=== PATIENT | male | born 1955 | race Caucasian/White ===

== ENCOUNTER 2017-04-16 16:06 | Inpatient (IN) | payer OTHER ==
[~2017-04-16] VITALS: Ht 175.3 cm; Wt 79.4 kg
[2017-04-16] MEDS ORDERED: ACETAMINOPHEN PO (16:32)
[2017-04-16] MEDS ORDERED: OXYCODONE PO (16:32)
[2017-04-16] MEDS ORDERED: MIRT15TA3 PO (16:32)
[2017-04-16] MEDS ORDERED: METF500T PO (16:32)
[2017-04-16] MEDS ORDERED: DOXY100T16 PO (16:32)
[2017-04-16] MEDS ORDERED: TRAZ50TA4 PO (16:32)
[2017-04-16] MEDS ORDERED: TRAZO50TA FT (16:32)
[2017-04-16] MEDS ORDERED: FLUO40CA PO (16:32)
[2017-04-16] MEDS ORDERED: BUPR150T3 PO (16:32)
[2017-04-16] MEDS ORDERED: SODIUM CHLORIDE 0.9% 1000 ML IV ONE (17:00)
[2017-04-16 17:13] LABS: BASO % 0.2 % (0.0-1.0); EOS # 0.1 K/mm3 (0.0-0.50); EOS % 0.6 % (0.0-3.0); LARGE UNSTAINED CELL # 0.1 K/mm3 (0.0-0.4); LARGE UNSTAINED CELL % 0.5 % (0.0-4.0); MEAN CORPUSCULAR HGB CONC 32.6 g/dl (32.0-36.5); MONO # 0.3 K/mm3 (0.0-0.8); MONO % 2.9 % (0.0-5.0); NEUTROPHILS # 9.8 K/mm3 (1.8-7.7); NEUTROPHILS % 86.9 % (36.0-66.0); PLATELET COUNT, AUTOMATED 235 k/mm3 (150-450); WHITE BLOOD COUNT 11.2 K/mm3 (4.0-10.0)
[2017-04-16 17:20] LABS: ABG HCO3 18.6 MEQ/L (22.0-26.0); ABG PARTIAL PRESSURE CO2 30.7 mmHg (35.0-45.0); ABG STANDARD HCO3 20.3 MEQ/L (22.0-26.0); ABG TOTAL CO2 19.5 MEQ/L (23.0-31.0)
[2017-04-16 17:29] LABS: ALBUMIN 3.1 GM/DL (3.2-5.2); ALBUMIN/GLOBULIN RATIO 0.86 (1.00-1.93); ALKALINE PHOSPHATASE 101 U/L (45-117); ALT/SGPT 13 U/L (12-78); ANION GAP 7 MEQ/L (8-16); AST/SGOT 10 U/L (15-37); BILIRUBIN,DIRECT 0.1 MG/DL (0.0-0.2); BILIRUBIN,TOTAL 0.3 MG/DL (0.2-1.0); BLOOD UREA NITROGEN 14 MG/DL (7-18); CALCIUM LEVEL 8.1 MG/DL (8.8-10.2); CARBON DIOXIDE LEVEL 24 MEQ/L (21-32); CHLORIDE LEVEL 108 MEQ/L (98-107); CREATININE FOR GFR 0.87 MG/DL (0.70-1.30); GLOMERULAR FILTRATION RATE > 60.0 (>49); GLUCOSE, FASTING 157 MG/DL (80-110); POTASSIUM SERUM 3.7 MEQ/L (3.5-5.1); SODIUM LEVEL 139 MEQ/L (136-145); TOTAL PROTEIN 6.7 GM/DL (6.4-8.2)
--- NOTE | 2017-04-16 20:49 | ECGEPIP ---
Stationary ECG Study 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
[2017-04-16 21:17] LABS: METHADONE URINE NEGATIVE (NEGATIVE)
[2017-04-17] MEDS ORDERED: FLUO20CA9 PO (10:33)
[2017-04-17 13:49] VITALS: BP 112/69
[2017-04-17] MEDS ORDERED: MAALOX 30 ML SUSP *UDC PO PRN (15:30)
[2017-04-17] MEDS ORDERED: traZODone 50 MG TAB PO PRN (15:30)
[2017-04-17] MEDS ORDERED: MOM 30ML SUSPENSION UDC PO PRN (15:30)
[2017-04-17] MEDS: NICOTINE 21MG/24HR 1 EA TRANSDERMAL TD SCH (16:54)
[2017-04-17] MEDS: metFORMIN (GLUCOPHAGE) 500 MG TAB PO SCH (17:04)
[2017-04-17] MEDS ORDERED: IBUPROFEN 600 MG TAB PO STA (21:33)
[2017-04-17] MEDS: MIRTAZAPINE 15 MG TAB PO SCH (22:05)
[2017-04-18 06:54] VITALS: BP 136/80
[2017-04-18] MEDS: buPROPion **XL** TABLET 150MG (WELLBUTRIN XL) PO SCH (09:29)
[2017-04-18] MEDS: NICOTINE 21MG/24HR 1 EA TRANSDERMAL TD SCH (09:29)
[2017-04-18] MEDS: FLUoxetine 20 MG CAP PO SCH (09:29)
[2017-04-18] MEDS: metFORMIN (GLUCOPHAGE) 500 MG TAB PO SCH ×2 (09:30→17:06)
--- NOTE | 2017-04-18 11:07 | HPEPDOC ---
Medical History and Physical Date of Admission April 17, 2017 at 11:38 History and Physical PCP: None ATTENDING: Dr. Khai Shaikh HPI: 61yoM admitted to [facility] for depressive disorder, being medically examined today. Patient was evaluated and medically cleared in the ED after stating he had taken 30 trazodone and 2 oxycodone. Poison control consulted. Patient states he was homeless in [place] and moved to [facility] with his ex- 2 weeks ago. Patient is only able to provide very vague history. History is taken from records received from the [facility]. Previously in [place] 02/01 he was hospitalized at [facility] for treatment of left hip septic arthritis, MSSA arthritis of the left hip and bacteremia and right wrist fracture. As per records from [place], this indicates that in October 2016 he developed a rectus tear after having the flu with intense coughing. Several weeks later he began to experience pain in the left hip. He was initially evaluated in [place]. CT scan at that time indicated a rectus sheath hematoma as well as left hip effusion concerning for arthritis. He returned to [place] and presented to a local physician there with repeat CT remarkable for loculated effusion of the left hip. On 01/31/17 he underwent I and D of the left hip. He states he fractured his wrist a follow-up he was hospitalized. He was subsequently transferred to SNF for PT, OT and to finish IV antibiotics. Patient completed 4 weeks of Cefazolin. Patient initially reported no acute medical complaints today. He is ambulating with the assistance of a walker related to his chronic left hip pain. He is wearing a brace on his right wrist related to history of fracture. He has not had any follow-up with orthopedics since his discharge in [place] 03/04. Initially he reported his chronic pain was unchanged and controlled. Subsequently at the end of the visit he states there has been an increase over the past 2 weeks and left hip pain. No erythema, no tenderness, no swelling. His incision is well-healed. He also states there has been an increase in his right wrist pain. He continues to wear the brace. There has been no increased edema, no erythema. Denies any fevers, chills, weakness, fatigue, LAURENT, CP, SOB, cough, palpitations, abdominal pain, N/V/D or changes in bowel or bladder habits. PMHx: Left hip septic arthritis 02/01. Treated in [place]. MSSA arthritis left hip/bacteremia 02/01 Right wrist fracture MDD History of pulmonary nodule. 2.2 x 1.0 cm nodule RLL, 5 mm nodule lateral RLL, 1.7 x 1.1 cm nodule left upper lobe. 4 mm nodule lateral left upper lobe. 0.8 cm nodule left major fissure, several additional scattered small pleural-based nodules, CT chest 01/30/17 [facility]. Due for repeat CT 05/07/17. DM 2 Aortic arch aneurysm Anemia 02/01/17 TTE negative for signs of endocarditis per records. PSHX: 01/31/17 left hip I&D PICC line 02/04/17 Spinal surgery. Inguinal hidradenitis. 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 ROS: As noted in HPI, otherwise 11pt ROS of systems reviewed and unremarkable. PE: GEN: 61 yo M, appears stated age. Well-nourished, well developed. No acute distress. Alert and oriented x 3. Pleasant, vague historian. HEENT: Normocephalic, atraumatic. Pupils are equal, round, and reactive to light. Extraocular movements are intact. No nystagmus appreciated. Sclera are nonicteric. Conjunctiva without injection. Nose midline. Nasal turbinates without bogginess. EACs both patent BL. TMs both visualized and hogan with good cone of light, no bulging or erythema. No facial asymmetry. Moist mucous membranes. Dentition fair. Pharynx pink and moist, no cobblestoning. Neck supple , trachea midline. No lymphadenopathy or thyromegaly appreciated. CHEST: Regular rate and rhythm, +S1, +S2 LUNGS: Clear to auscultation bilaterally. No wheezes, rales, or rhonchi. Breathing appears symmetric and easy. Patient is speaking in full sentences. No accessory muscle use. ABD: Round, soft, non-tender, non-distended. +Bowel sounds throughout. No rebound or guarding. No costovertebral angle tenderness. EXT: Pulses 2+ bilaterally dorsalis pedis and radial. No lower extremity edema appreciated. SKIN: [place], dry, warm. Capillary refill <2sec. No rashes. There is a healed surgical scar at the left hip and right wrist. There is no erythema, no rashes, no swelling, no tenderness with palpation. NEURO: Alert and oriented x 3. Cranial nerves III-XII are intact. No focal deficits appreciated. EKG: Pending A&P: 61yoM admitted to [facility] for depressive disorder 1. Psych. Plan per Psychiatry. Obtain baseline EKG to assure the safety of psychiatric medications as they can prolong the QT interval. 2. Nicotine dependence. Patch available. 3. History of left hip septic arthritis, MSSA, status post I&D and 4 weeks IV antibiotics completed 03/04. Check x-ray of the left hip. Continue ambulation with walker. Plan is for outpatient follow-up with orthopedics or pending results. Patient is afebrile. WBC noted to be 11.1, recheck CBC. 4. Follow up. No Primary Care Provider. Will attempt to establish PCP on discharge. 5. Right wrist fracture. Check x-ray of right wrist. Continues to wear a brace on the wrist. Plan is for outpatient follow-up with orthopedics for pending results. 6. Chronic right wrist and left hip pain. Continue ibuprofen 600 mg every 8 hours as needed. Consider pain management if needed. ISTOP Ref # [id number] no results. 7. NIDDM. Controlled carbohydrate diet. Continue metformin 500 mg by mouth twice a day. Fingerstick blood sugar twice a day. Update A1c/lipids. 8. Unsteady gait. Continue ambulation with walker. PT evaluation pending. 9. History of pulmonary nodule. Follow-up CT chest due 05/04. Will request. 10. Staff member Danielito present throughout exam. Vital Signs Vital Signs Date Time Temp Pulse Resp B/P (MAP) Pulse Ox O2 Delivery O2 Flow Rate FiO2 04/18/17 06:54 97.3 80 20 136/80 (98) Room Air 04/17/17 13:49 96 04/16/17 18:11 4.0 Laboratory Data Labs 24H Laboratory Tests 2 04/17/17 17:43: Bedside Glucose (Misc Panel) 160H 04/18/17 06:12: Bedside Glucose (Misc Panel) 125H CBC/BMP Item Value Date Time White Blood Count 11.2 K/mm3 H 04/16/17 1647 Red Blood Count 4.90 M/mm3 04/16/17 1647 Hemoglobin 13.7 g/dl L 04/16/17 1647 Hematocrit 42.1 % 04/16/17 1647 Mean Corpuscular Volume 86.0 fl 04/16/17 1647 Mean Corpuscular Hemoglobin 28.0 pg 04/16/17 1647 Mean Corpuscular Hemoglobin Concent 32.6 g/dl 04/16/17 1647 Red Cell Distribution Width 18.0 % H 04/16/17 1647 Platelet Count 235 k/mm3 04/16/17 1647 Sodium Level 139 MEQ/L 04/16/17 1647 Potassium Level 3.7 MEQ/L 04/16/17 1647 Chloride Level 108 MEQ/L H 04/16/17 1647 Carbon Dioxide Level 24 MEQ/L 04/16/17 1647 Anion Gap 7 MEQ/L L 04/16/17 1647 Blood Urea Nitrogen 14 MG/DL 04/16/17 1647 Creatinine 0.87 MG/DL 04/16/17 1647 Glomerular Filtration Rate > 60.0 04/16/17 1647 Fasting Glucose 157 MG/DL H 04/16/17 1647 Calcium Level 8.1 MG/DL L 04/16/17 1647 Total Bilirubin 0.3 MG/DL 04/16/17 1647 Direct Bilirubin 0.1 MG/DL 04/16/17 1647 Aspartate Amino Transf (AST/SGOT) 10 U/L L 04/16/17 1647 Alanine Aminotransferase (ALT/SGPT) 13 U/L 04/16/17 1647 Alkaline Phosphatase 101 U/L 04/16/17 1647 Total Creatine Kinase 36 U/L L 04/16/17 1647 Albumin 3.1 GM/DL L 04/16/17 1647 Total Protein 6.7 GM/DL 04/16/17 1647 Albumin/Globulin Ratio 0.86 L 04/16/17 1647 Thyroid Stimulating Hormone (TSH) 1.020 uIU/ML 04/16/17 1647 Salicylates Level 7.0 MG/DL 5/30/17 1647 Urine Opiates Screen POSITIVE H 04/16/172021 Urine Methadone Screen NEGATIVE 04/16/172021 Acetaminophen Level 6.5 UG/ML L 04/16/171646 Urine Barbiturates Screen NEGATIVE 04/16/172021 Urine Phencyclidine Screen NEGATIVE 04/16/172021 Urine Amphetamines Screen NEGATIVE 04/16/172021 Urine Benzodiazepines Screen NEGATIVE 04/16/172021 Urine Cocaine Metabolite Screen NEGATIVE 04/16/172021 Urine Cannabinoids Screen NEGATIVE 04/16/172021 Ethyl Alcohol Level < 0.003 % 04/16/171646 Home Medications Scheduled Bupropion Hcl (Bupropion HCl Xl) 150 Mg Tab, 150 MG PO DAILY Fluoxetine Hcl (Fluoxetine HCl) 20 Mg Cap, 40 MG PO DAILY Metformin Hydrochloride (Metformin HCl) 500 Mg Tab, 500 MG PO BID Mirtazapine (Mirtazapine) 15 Mg Tab, 15 MG PO QHS Trazodone HCl (Trazodone HCl) 50 Mg Tab, 50 MG PO QHS Allergies Coded Allergies: No Known Allergies (Unverified , 04/16/17) Lori Pryor Apr 18, 2017 11:07
--- NOTE | 2017-04-18 12:10 | MHHPEPDOC ---
[facility] History & Physical History and Physical DATE OF ADMISSION: April 17, 2017 at 11:38 LEGAL STATUS AT ADMISSION: 9.39 CHIEF COMPLAINT: "I wanted to check out. Things just piled up on me, pain, losing my girlfriend, losing my truck". HISTORY OF THE PRESENT ILLNESS: Patient is a 61-year-old male, who appears older than stated age. Pt has been receiving antidepressants and therapy while living in [place]. His PCP was providing his medications - wellbutrin and prozac. Pt developed a serious infection earlier this year which resulted in a significant weight loss of 70 lbs. His left hip was infected and he is still on antibiotics for the staph infection. Pt is hopeful he will be able to have a hip replacement as he is in chronic constant hip pain. 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 He [place] [facility]. He owns the truck and companies would contract with him to take their trailers across the country. Pt states his on the road absences could be as long as 87 days and his marriage ended as a result of this. He had been 34 years and had 3 children. The divorce ocurred 8-9 years ago. He had a girlfriend after he moved to [place] and they recently broke up for reasons related to his depression. He states in the afternoon he would "get sad and barry" and have crying spells. His GF couldn't take it and left. He says he still has these crying spells during 2 and 4 in the afternoon and thinks it is because that is the time his GF would return home from work and he misses her. PSYCHIATRIC REVIEW OF SYSTEMS: Affective: . Anxiety: . Trauma: . Psychosis: . Personally: . PAST PSYCHIATRIC HISTORY: Prior Psychiatric Disorder: . Outpatient Treatment: . Suicidal/Self injurious: . Psychotropic Medication History: . ALLERGIES: Please see below. FAMILY PSYCHIATRIC HISTORY: . SOCIAL HISTORY: Early Relations/development: . Sibling order: . Paternal relationships: . Education: . Occupational: . Legal: . Martial: . Economic: . Supports: . Abuse/trauma: . SUBSTANCE ABUSE HISTORY: . PAST MEDICAL/SURGICAL HISTORY: 1. . 2. . VITAL SIGNS: Temperature , pulse , respiratory rate , blood pressure , pulse oximetry % on room air. MENTAL STATUS EXAMINATION: General appearance: Patient is a -year old male, who is . Speech: . Thought processes: . Thought content: . Abstract reasoning and computation: . Description of associations: . Description of abnormal or psychotic thoughts: . Judgment: . Insight: . Orientation: . Recent and remote memory: . Attention span and concentration: . Fund of knowledge: . Mood: "." Affect: . DIAGNOSES: 1. . 2. . 3. . ASSESSMENT: PROBLEM LIST: 1. . 2. . 3. . INITIAL TREATMENT PLAN: 1. Patient was admitted on a . 2. Complete history was obtained. 3. With patients permission, family will be contacted and database will be expanded. 4. Patients medication regimen will be reviewed and changed accordingly. 5. Patient will be provided with protected environment. 6. Patient will be treated with individual, group, and milieu therapies. 7. Patient will receive supportive psych-education. 8. Discharge planning will commence immediately. 9. Outpatient follow-up treatment will be strongly recommended. 10. The initial treatment plan will focus initially on: * Depression. * Risk for suicide. * Substance abuse. ESTIMATED LENGTH OF STAY: - DAYS. TIME SPENT COUNSELING AND COORDINATING INITIAL CARE: minutes. Laboratory Data 24H Labs Laboratory Tests 2 04/17/17 17:43: Bedside Glucose (Misc Panel) 160H 04/18/17 06:12: Bedside Glucose (Misc Panel) 125H FSBS Laboratory Tests Test 04/17/17 17:43 04/18/17 06:12 Range/Units Bedside Glucose (Misc Panel) 160 125 80-115 MG/DL Medications Scheduled Bupropion Hcl (Bupropion HCl Xl) 150 Mg Tab, 150 MG PO DAILY, (Reported) Bupropion Hcl (Bupropion HCl Xl) 150 Mg Tab, 150 MG PO QAM for DEPRESSION Fluoxetine Hcl (Fluoxetine HCl) 20 Mg Cap, 40 MG PO DAILY, (Reported) Fluoxetine Hcl (Fluoxetine HCl) 20 Mg Cap, 40 MG PO QAM for DEPRESSION Metformin Hydrochloride (Metformin HCl) 500 Mg Tab, 500 MG PO BID, (Reported) Allergies Coded Allergies: No Known Allergies (Unverified , 04/16/17) Naomi Meeks Apr 18, 2017 12:10
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
[2017-04-18] MEDS: IBUPROFEN 600 MG TAB PO PRN ×2 (14:06→21:39)
[2017-04-18 18:00] VITALS: BP 143/78
--- NOTE | 2017-04-18 20:57 | ECGEPIP ---
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
[2017-04-18] MEDS: MIRTAZAPINE 15 MG TAB PO SCH (21:00)
--- NOTE | 2017-04-19 01:54 | REP ---
Clinical: Pain. Technique: AP and frog lateral views of the left hip. Findings: There is complete obliteration of the joint space with increase sclerosis and heterogeneity of the acetabulum as well as irregular contour and suspected destructive changes to the femoral head along with periarticular calcifications as well as subchondral cystic/lytic changes. Findings are consistent with a history of septic arthritis. Clinical correlation is recommended. Impression: Obliteration of the joint space with irregularity to the residual femoral head and acetabulum along with periarticular calcifications consistent with a history of septic arthritis. Signed by Edwin Brice MD 04/19/2017 01:45 A
--- NOTE | 2017-04-19 02:11 | REP ---
Clinical: Pain. History of prior fracture. Technique: AP, lateral, bilateral oblique views of the right wrist. Comparison: None. Findings: Mild heterogeneity and subtle lytic changes involving the scaphoid and lunate bone along with increased sclerosis to the radial surface and decreased radiocarpal joint space may be related to prior trauma. Oblique image demonstrates small linear density inferior to the pisiform and superior to the ulnar styloid which may also be related to prior trauma. Overlying soft tissue swelling is suggested. No obvious acute fracture or dislocation identified. Impression: Changes related to the scaphoid and lunate and underlying radial surface may reflect sequelae of old injury. Small possible old linear fracture fragment superior to the ulnar styloid on oblique image also suggested. Signed by Edwin Brice MD 04/19/2017 02:02 A
[2017-04-19 06:00] VITALS: BP 163/87
[2017-04-19 07:20] LABS: MEAN CORPUSCULAR HEMOGLOBIN 28.5 pg (27.0-33.0); MEAN CORPUSCULAR HGB CONC 33.5 g/dl (32.0-36.5); WHITE BLOOD COUNT 6.7 K/mm3 (4.0-10.0)
[2017-04-19 07:45] LABS: ALBUMIN 3.2 GM/DL (3.2-5.2); ALBUMIN/GLOBULIN RATIO 0.91 (1.00-1.93); ALKALINE PHOSPHATASE 105 U/L (45-117); ALT/SGPT 15 U/L (12-78); ANION GAP 7 MEQ/L (8-16); AST/SGOT 13 U/L (15-37); BILIRUBIN,TOTAL 0.3 MG/DL (0.2-1.0); BLOOD UREA NITROGEN 14 MG/DL (7-18); CALCIUM LEVEL 8.4 MG/DL (8.8-10.2); CARBON DIOXIDE LEVEL 26 MEQ/L (21-32); CHLORIDE LEVEL 109 MEQ/L (98-107); CHOLESTEROL LEVEL 173 MG/DL (<200); CREATININE FOR GFR 0.75 MG/DL (0.70-1.30); GLOMERULAR FILTRATION RATE > 60.0 (>49); GLUCOSE, FASTING 122 MG/DL (80-110); POTASSIUM SERUM 4.1 MEQ/L (3.5-5.1); SODIUM LEVEL 142 MEQ/L (136-145); TOTAL PROTEIN 6.7 GM/DL (6.4-8.2); TRIGLYCERIDES LEVEL 107 MG/DL (<150)
[2017-04-19] MEDS: metFORMIN (GLUCOPHAGE) 500 MG TAB PO SCH (08:00)
[2017-04-19] MEDS: FLUoxetine 20 MG CAP PO SCH (08:25)
[2017-04-19] MEDS: buPROPion **XL** TABLET 150MG (WELLBUTRIN XL) PO SCH (08:25)
[2017-04-19] MEDS: NICOTINE 21MG/24HR 1 EA TRANSDERMAL TD SCH (08:25)
[2017-04-19] MEDS: IBUPROFEN 600 MG TAB PO PRN (08:26)
--- NOTE | 2017-04-19 08:43 | REP ---
Clinical: Follow-up pulmonary nodule. Comparison: 05/07/2002. Findings: A 1.9 cm noncalcified nodule is identified in the medial left upper lobe (image 43) and a 1.8 cm nodular noncalcified lesion is identified in the right lower lobe (image 64). Smaller scattered noncalcified nodules are also identified in the left upper lobe including adjacent to the major fissure which measures 10 mm (image 51) and few scattered bilateral smaller nodules up to 5 mm. Minimal scattered scarring and interstitial changes are appreciated. No pleural effusion. No pneumothorax. Tracheobronchial tree is patent. Mediastinum and cardiac silhouette are grossly normal for noncontrast evaluation of those subtle mediastinal lymph nodes cannot be excluded. Limited upper abdomen demonstrates suspected right adrenal adenoma measuring approximately 1.9 cm. Impression: 1.9 cm medial left upper lobe and 1.8 cm right lower lobe noncalcified lesions along with 10 mm lesion adjacent to the left major fissure. PET CT and/or 3-month follow-up may be warranted as well as Pulmonology consultation and biopsy. Signed by Edwin Brice MD 04/19/2017 08:34 A
[2017-04-19] MEDS ORDERED: BUPR150T3 PO (10:51)
[2017-04-19] MEDS ORDERED: FLUO20CA9 PO (10:51)
--- NOTE | 2017-04-19 11:03 | MHDSPDOC ---
[facility] Discharge Summary Discharge Summary DATE OF ADMISSION: April 17, 2017 at 11:38 DATE OF DISCHARGE: April 19, 2017 DISCHARGE DIAGNOSES: 1. MDD, severe, recurrent without psychotic features. 2. . REASON FOR ADMISSION: overdose on trazodone with intent to committ suicide CONSULTANTS INVOLVED: PT, Medicine, Psychiatry, Lab TREATMENT AND PROGRESS ON THE UNIT : Pt regretted his impulsive act from the moment he arrived on the unit. He has been mostly stable on his medications. he recently arrived in [place] from [place] where h ewas living and working. His girlfriend broke up with him. He has chronic pain, he needs a hip replacement but has an infection, and he has been unable to work due to his infection. Loss of income resulted in losing his truck that he owed money on. Pt became overwhelmed and took an overdose "to check out". Pt no longer desires to . He has gained insight from his time on the unit. HOSPITAL COURSE: Pt stabilized rather quickly. He had been on his medications since leaving [place] and for many months prior to that. He has numerous medical issues that have been addressed and he will follow up with [facility] on 05/02/17. He will attend [facility] mental health services at [facility]. Pt had PT eval while here. We were able to obtain a recliner for him to sleep in which he says is more comfortable than lying down. DISCHARGE ASSESSMENT: Pt is alert and oriented. Hygiene is good. Taking medications as prescribed and knows not to stop meds abruptly. Pt showed fiction and nonfiction writer prose handouts from group that he has found helpful especially in terms of communication. He is in good spirts, laughing and joking. Ex- will transport him to her house where he will remain until he is able to make other arrangements. MENTAL STATUS EXAMINATION ON DISCHARGE: Patient is a 61-year old male, who appears older than stated age, unshaven, dressed casually, smiling and pleasant. Ambulates with walker very slowly. Speech is spontaneous Language skills are good Thought processes including: goal directed. Thought content: appropriate Abstract reasoning, and computation: good Description of associations: good Description of abnormal or psychotic thoughts: no longer thinks about taking his life, no homicidal ideation, no psychotic symptoms. Judgment: improved Insight: improved-good Orientation to person, place , time and situation. Recent and remote memory: intact Attention span and concentration: good Fund of knowledge: full Mood: euthymic Affect: broad MEDICATIONS ON DISCHARGE: - wellbutrin xl for depression - prozac for depression PLAN/FOLLOWUP ARRANGEMENTS: CC for outpatient mental health service, [facility] for medical needs. See DSS to change medicaid to [facility] from [place]. The amount of time spent in the coordination of care for this patient was approximately 30 minutes. Vital Signs/I&Os Vital Signs Date Time Temp Pulse Resp B/P (MAP) Pulse Ox O2 Delivery O2 Flow Rate FiO2 04/19/17 06:00 98.3 94 16 163/87 (112) 04/18/17 06:54 Room Air 04/17/17 13:49 96 04/16/17 18:11 4.0 Laboratory Data Labs 24H Laboratory Tests 2 04/18/17 17:03: Bedside Glucose (Misc Panel) 116H 04/19/17 05:59: Bedside Glucose (Misc Panel) 119H 04/19/17 06:37: Anion Gap 7L, Glomerular Filtration Rate > 60.0, Estimated Mean Plasma Glucose 134H, Hemoglobin A1c 6.3H, Blood Urea Nitrogen 14, Creatinine 0.75, Sodium Level 142, Potassium Level 4.1, Chloride Level 109H, Carbon Dioxide Level 26, Calcium Level 8.4L, Aspartate Amino Transf (AST/SGOT) 13L, Alanine Aminotransferase (ALT/SGPT) 15, Alkaline Phosphatase 105, Total Bilirubin 0.3, Triglycerides Level 107, LDL Cholesterol 110.6H, Total Protein 6.7, Albumin 3.2 , Albumin/Globulin Ratio 0.91L, Total Cholesterol 173, Non-HDL Cholesterol (LDL + VLDL) 132, Total HDL Cholesterol 41, Cholesterol/HDL Ratio 4.219 CBC/BMP Laboratory Tests 04/19/17 06:37 Red Blood Count 4.58, Mean Corpuscular Volume 85.0, Mean Corpuscular Hemoglobin 28.5, Mean Corpuscular Hemoglobin Concent 33.5, Red Cell Distribution Width 18.0 H, Calcium Level 8.4 L, Aspartate Amino Transf (AST/SGOT) 13 L, Alanine Aminotransferase (ALT/SGPT) 15, Alkaline Phosphatase 105, Total Bilirubin 0.3, Triglycerides Level 107, LDL Cholesterol 110.6 H, Total Protein 6.7, Albumin 3.2 Medications Scheduled Bupropion Hcl (Bupropion HCl Xl) 150 Mg Tab, 150 MG PO DAILY, (Reported) Bupropion Hcl (Bupropion HCl Xl) 150 Mg Tab, 150 MG PO QAM for DEPRESSION for 7 Days, #7 Fluoxetine Hcl (Fluoxetine HCl) 20 Mg Cap, 40 MG PO DAILY, (Reported) Fluoxetine Hcl (Fluoxetine HCl) 20 Mg Cap, 40 MG PO QAM for DEPRESSION for 7 Days, #7 Metformin Hydrochloride (Metformin HCl) 500 Mg Tab, 500 MG PO BID, (Reported) Allergies Coded Allergies: No Known Allergies (Unverified , 04/16/17) Naomi Meeks Apr 19, 2017 11:03
--- NOTE | 2017-04-19 12:10 | IPNPDOC ---
Subjective Date Seen The patient was seen on 04/19/17. Subjective Chief Complaint/HPI The patient is a 61-year-old male admitted with a reason for visit of Depressive Disorder. Events since last encounter Pt with no new complaints. Ambulating in HW with platform walker. Objective Physical Examination General Exam: Positive: Alert ENT Exam: Positive: Atraumatic Neck Exam: Positive: Supple Skin Exam: Positive: Nl turgor and temperature Assessment /Plan Problems (1) Hx of septic arthritis Problem Text: * H/O left hip septic arthritis (MSSA) s/p I&D [place]. * Completed x 4 weeks IV Cefazolin. * 02/01/17 TTE negative for signs of endocarditis per records * PT- Platform walker. * XR left hip 04/18/17 Obliteration of the joint space with irregularity to the residual femoral head and acetabulum along with periarticular calcifications consistent with a history of septic arthritis. * Plan is for outpt f/u with [facility] (2) Right wrist fracture Problem Text: * Wearing splint * XR Rt Wrist 04/18/17 Changes related to the scaphoid and lunate and underlying radial surface may reflect sequelae of old injury. Small possible old linear fracture fragment superior to the ulnar styloid on oblique image also suggested. (3) Pulmonary nodule Problem Text: * Septic emboli vs malignancy as per report [facility] 02/01. * Recommended f/u study 3 mo. * Pt is afebrile. WBC WNL. * No pulmonary complaints at this time * CT chest 04/18/17 1.9 cm medial left upper lobe and 1.8 cm right lower lobe noncalcified lesions along with 10 mm lesion adjacent to the left major fissure. PET CT and/or 3-month follow-up may be warranted as well as Pulmonology consultation and biopsy. * Discussed with Dr Green, who also reviewed CT Chest, recommends outpt f/u with her in her office after d/c. * Will fwd copy of records. Spoke with Mary joseph, she will arrange appt today. Plan/VTE VTE Prophylaxis Ordered?: No (ambulatory) VS, I&O, 24H, Fishbone Vital Signs/I&O Vital Signs Date Time Temp Pulse Resp B/P (MAP) Pulse Ox O2 Delivery O2 Flow Rate FiO2 04/19/17 06:00 98.3 94 16 163/87 (112) 04/18/17 06:54 Room Air 04/17/17 13:49 96 04/16/17 18:11 4.0 Laboratory Data 24H LABS Laboratory Tests 2 04/18/17 17:03: Bedside Glucose (Misc Panel) 116H 04/19/17 05:59: Bedside Glucose (Misc Panel) 119H 04/19/17 06:37: Anion Gap 7L, Glomerular Filtration Rate > 60.0, Estimated Mean Plasma Glucose 134H, Hemoglobin A1c 6.3H, Blood Urea Nitrogen 14, Creatinine 0.75, Sodium Level 142, Potassium Level 4.1, Chloride Level 109H, Carbon Dioxide Level 26, Calcium Level 8.4L, Aspartate Amino Transf (AST/SGOT) 13L, Alanine Aminotransferase (ALT/SGPT) 15, Alkaline Phosphatase 105, Total Bilirubin 0.3, Triglycerides Level 107, LDL Cholesterol 110.6H, Total Protein 6.7, Albumin 3.2 , Albumin/Globulin Ratio 0.91L, Total Cholesterol 173, Non-HDL Cholesterol (LDL + VLDL) 132, Total HDL Cholesterol 41, Cholesterol/HDL Ratio 4.219 CBC/BMP Laboratory Tests 04/19/17 06:37 Red Blood Count 4.58, Mean Corpuscular Volume 85.0, Mean Corpuscular Hemoglobin 28.5, Mean Corpuscular Hemoglobin Concent 33.5, Red Cell Distribution Width 18.0 H, Calcium Level 8.4 L, Aspartate Amino Transf (AST/SGOT) 13 L, Alanine Aminotransferase (ALT/SGPT) 15, Alkaline Phosphatase 105, Total Bilirubin 0.3, Triglycerides Level 107, LDL Cholesterol 110.6 H, Total Protein 6.7, Albumin 3.2 Lori Pryor Apr 19, 2017 12:10
== END 2017-04-19 11:20 | disposition home or self-care (01) | DRG 751 ==
LOC: EDBD 16:06 → EDSEX 16:06 → M ED 18:36 → M ED INP 04-17 11:38 → M PSY 04-17 13:37
PROVIDERS: ADMIT Psychiatry & Neurology Psychiatry; ATTEND Psychiatry & Neurology Psychiatry
DX: F33.2 Major depressive disorder, recurrent severe without psychotic features (principal); F43.21 Adjustment disorder with depressed mood; E11.9 Type 2 diabetes mellitus without complications; D64.9 Anemia, unspecified; F17.210 Nicotine dependence, cigarettes, uncomplicated; R91.8 Other nonspecific abnormal finding of lung field; M25.552 Pain in left hip; I71.4 Abdominal aortic aneurysm, without rupture; T40.2X2A Poisoning by other opioids, intentional self-harm, initial encounter; T43.212A Poisoning by selective serotonin and norepinephrine reuptake inhibitors, intentional self-harm, initial encounter; R26.81 Unsteadiness on feet; G89.29 Other chronic pain; M25.531 Pain in right wrist; Z79.84 Long term (current) use of oral hypoglycemic drugs; Z79.899 Other long term (current) drug therapy; Z79.891 Long term (current) use of opiate analgesic; Y92.9 Unspecified place or not applicable

== ENCOUNTER 2017-04-25 19:00 | Inpatient (IN) | payer OTHER ==
[~2017-04-25] VITALS: Ht 177.8 cm; Wt 77.1 kg
[~2017-04-25 19:00] MED LIST: ACETAMINOPHEN PO; BUPR150T3 PO; DOXY100T16 PO; FLUO20CA9 PO; FLUO40CA PO; METF500T PO; MIRT15TA3 PO; OXYCODONE PO; TRAZ50TA4 PO; TRAZO50TA FT
[2017-04-25] MEDS ORDERED: OXYC1TAB23 PO (19:15)
[2017-04-25] MEDS ORDERED: FLORCAP6 PO (19:15)
[2017-04-25] MEDS ORDERED: MIRT15TA3 PO (19:15)
[2017-04-25] MEDS ORDERED: HYDROmorphone HCL 1 MG/ML SYRINGE (J1170) IV ONE (20:00)
[2017-04-25] MEDS ORDERED: MORPHINE 2 MG/ML 1ML SYRINGE IV ONE (20:00)
[2017-04-25 20:01] LABS: BASO # 0.1 K/mm3 (0.0-0.2); BASO % 0.7 % (0.0-1.0); EOS # 0.2 K/mm3 (0.0-0.50); EOS % 1.5 % (0.0-3.0); LARGE UNSTAINED CELL # 0.1 K/mm3 (0.0-0.4); LARGE UNSTAINED CELL % 0.9 % (0.0-4.0); LYMPH # 1.7 K/mm3 (1.5-4.5); LYMPH % 16.3 % (24.0-44.0); MEAN CORPUSCULAR HEMOGLOBIN 28.4 pg (27.0-33.0); MEAN CORPUSCULAR HGB CONC 33.8 g/dl (32.0-36.5); MONO # 0.6 K/mm3 (0.0-0.8); NEUTROPHILS # 7.6 K/mm3 (1.8-7.7); NEUTROPHILS % 74.7 % (36.0-66.0); PLATELET COUNT, AUTOMATED 334 k/mm3 (150-450); RED CELL DISTRIBUTION WIDTH 17.7 % (11.5-14.5); WHITE BLOOD COUNT 10.2 K/mm3 (4.0-10.0)
[2017-04-25 20:19] LABS: ERYTHROCYTE SEDIMENTATION RATE 66 mm/hr (0-20)
[2017-04-25] MEDS: PERCOCET 5MG/325MG TAB PO PRN (20:20)
[2017-04-25 20:30] LABS: ALBUMIN 3.2 GM/DL (3.2-5.2); ALBUMIN/GLOBULIN RATIO 0.73 (1.00-1.93); ALKALINE PHOSPHATASE 119 U/L (45-117); ALT/SGPT 19 U/L (12-78); ANION GAP 8 MEQ/L (8-16); AST/SGOT 11 U/L (15-37); BILIRUBIN,TOTAL 0.3 MG/DL (0.2-1.0); BLOOD UREA NITROGEN 16 MG/DL (7-18); CARBON DIOXIDE LEVEL 22 MEQ/L (21-32); CHLORIDE LEVEL 106 MEQ/L (98-107); CREATININE FOR GFR 0.81 MG/DL (0.70-1.30); GLOMERULAR FILTRATION RATE > 60.0 (>49); GLUCOSE, FASTING 135 MG/DL (80-110); MAGNESIUM LEVEL 1.5 MG/DL (1.8-2.4); POTASSIUM SERUM 4.4 MEQ/L (3.5-5.1); SODIUM LEVEL 136 MEQ/L (136-145); TOTAL PROTEIN 7.6 GM/DL (6.4-8.2)
[2017-04-25] MEDS ORDERED: ISOVUE-370 76% 100ML VIAL (Q9967) As Ordered ONE (20:36)
[2017-04-25] MEDS ORDERED: CEFTAROLINE FOSAMIL 600 MG in D5W MINI-BAG PLUS 50 ML IV SCH (20:45)
[2017-04-25] MEDS ORDERED: MAG SULF 1GM/100ML (MAG RUN) 1 GM in APPROPRIATE DILUENT 1 EA IV ONE (20:45)
--- NOTE | 2017-04-25 22:00 | REPUSA ---
CT of the pelvis without contrast Clinical statement: Pain, possible infection in the left hip. Technique: Multiple axial CT images were obtained with 5 mm cuts through the pelvis without administ ration of contrast. Coronal and sagittal reconstructions were also obtained. No comparison is available. Findings: There is severe deformity of the left femoral head, with flattening of the superior aspect. Several small ossific density is are seen around the joint space. No lytic changes are appreciated. There is a low attenuation collection in the anterior lateral soft tissues, measuring 3.9 x 2.8 cm, suspicious for a abscess. There is also a small joint effusion. There is moderate narrowing of the ri ght hip joint as well. The bowel is unremarkable. There is no evidence of pelvic lymphadenopathy or a scites. Impression: 1.. Severe chronic deformity of the left hip, with flattening of the femoral head. Tiny ossific fragm ents are seen around the joint spaces well. Additionally, there is a left-sided joint effusion with a fluid collection in the anterior lateral soft tissues of the left thigh. This conglomeration of find ings are suspicious for septic arthritis with surrounding abscess. The destructive changes could be c hronic, but septic arthritis could also have this appearance. If there is continued concern, MRI or j oint aspiration is recommended. 2. Moderate osteoarthritis of the right hip joint. 3. No acute fractures.
[2017-04-25] MEDS ORDERED: IBUPOTC PO (23:53)
[2017-04-26] VITALS (7 sets, daily range): BP systolic 130–156; BP diastolic 72–85
[2017-04-26] MEDS ORDERED: ACETAMINOPHEN TAB 650MG DOSE (2X325MG) PO PRN (00:15)
--- NOTE | 2017-04-26 00:24 | CR.PDOC ---
[facility] Consultation Consultation DATE OF CONSULTATION: Apr 25, 2017 at 20:26 REFERRING PROVIDER: Dr. Peralta ATTENDING PHYSICIAN: Dr. Venu Stephen REASON FOR CONSULTATION/CHIEF COMPLAINT: L septic hip arthritis. HISTORY OF PRESENT ILLNESS: Patient is a 61 y/o diabetic male with a history of left [place] hip septic arthritis that underwent irrigation and debridement in [employer] in January 2017. He was found to have MSSA infection treated with 12 weeks of IV antibiotics. Over the last few days, he developed acute onset hip pain with subjective fevers and chills and presented to the ED for evaluation. He has significant increased pain about the left hip and is unable to bear weight. ALLERGIES: Please see below. HOME MEDICATIONS: Please see below. PAST MEDICAL HISTORY: 1. L hip septic arthritis per HPI. 2. Diabetes. 3. Depression PAST SURGICAL HISTORY: 1. L hip I&D per HPI 2. 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 CARDIOVASCULAR: No chest pain or palpitations. RESPIRATORY: + cough. MUSCULOSKELETAL: + l hip pain, infection per HPI. GASTROINTESTINAL: no nausea, vomiting, diarrhea. PHYSICAL EXAMINATION: VITAL SIGNS: Please see below. GENERAL APPEARANCE: appears older than stated age, no acute distress. RESPIRATORY: non labored breathing. CARDIOVASCULAR: 2+ DP/PT pulses, BCR all digits LLE. EXTREMITIES: L hip anterior wound is clean and dry with no drainage. There is significant erythema around the incision with induration and palpable fluctuance. Severe pain with logroll of the hip. Patient unable to bear weight NEUROLOGICAL: sensation/motor intact in LLE tibial, sural, saphenous, SPN, DPN distributions. LABORATORY DATA: Please see below. Radiographs demonstrate significant erosion of the left hip femoral head with superior migration CT of the hip and pelvis demonstrates likely fluid collection in left hip ASSESSMENT/PLAN: 61 y/o male with recurrent left hip septic arthritis with acute onset pain, fever, elevated inflammatory markers, and fluid collection 1. recommend IR guided hip aspiration VANDANA for cell count. 2. Likely return to OR for irrigation and debridement and possible resection arthroplasty 3. Discussed with the patient the risks, benefits, indications, and alternatives of operative3 and non operative treatment of his recurrent infection and discussed thast he will most likely benefit from direct source control. 4. informed consent was obtained for left hip irrigation and debridement and possible resection arthroplasty 5. all patient questions were answered Vital Signs/I&O Vital Signs Date Time Temp Pulse Resp B/P (MAP) Pulse Ox O2 Delivery O2 Flow Rate FiO2 04/25/17 22:38 99.0 117 16 132/78 (96) 98 Room Air Laboratory Data Labs 24H Laboratory Tests 2 04/25/17 19:43: White Blood Count 10.2H, Red Blood Count 4.83, Hemoglobin 13.7L, Hematocrit 40.6L, Mean Corpuscular Volume 84.0, Mean Corpuscular Hemoglobin 28.4, Mean Corpuscular Hemoglobin Concent 33.8, Red Cell Distribution Width 17.7H, Platelet Count 334, Neutrophils (%) (Auto) 74.7H, Lymphocytes (%) (Auto) 16.3L, Monocytes (%) (Auto) 6.0H, Eosinophils (%) (Auto) 1.5, Basophils (%) (Auto) 0.7 , Neutrophils # (Auto) 7.6, Lymphocytes # (Auto) 1.7, Monocytes # (Auto) 0.6, Eosinophils # (Auto) 0.2, Basophils # (Auto) 0.1, Large Unclassified Cells % 0.9 , Large Unclassified Cells # 0.1, Erythrocyte Sedimentation Rate 66H, Anion Gap 8, Glomerular Filtration Rate > 60.0, Estimated Mean Plasma Glucose 137H, Hemoglobin A1c 6.4H, Blood Urea Nitrogen 16, Creatinine 0.81, Sodium Level 136, Potassium Level 4.4, Chloride Level 106, Carbon Dioxide Level 22, Calcium Level 9.0, Aspartate Amino Transf (AST/SGOT) 11L, Alanine Aminotransferase (ALT/SGPT) 19, Alkaline Phosphatase 119H, Total Bilirubin 0.3, Total Protein 7.6, Albumin 3.2, Magnesium Level 1.5L, C-Reactive Protein, Quantitative 11.40H, Albumin/ Globulin Ratio 0.73L CBC/BMP Laboratory Tests 04/25/17 19:43 Red Blood Count 4.83, Mean Corpuscular Volume 84.0, Mean Corpuscular Hemoglobin 28.4, Mean Corpuscular Hemoglobin Concent 33.8, Red Cell Distribution Width 17.7 H, Neutrophils (%) (Auto) 74.7 H, Lymphocytes (%) (Auto) 16.3 L, Monocytes (%) (Auto) 6.0 H, Eosinophils (%) (Auto) 1.5, Basophils (%) (Auto) 0.7, Neutrophils # (Auto) 7.6, Lymphocytes # (Auto) 1.7, Monocytes # (Auto) 0.6, Eosinophils # (Auto) 0.2, Basophils # (Auto) 0.1, Calcium Level 9.0, Aspartate Amino Transf (AST/SGOT) 11 L, Alanine Aminotransferase (ALT/SGPT) 19, Alkaline Phosphatase 119 H, Total Bilirubin 0.3, Total Protein 7.6, Albumin 3.2 Microbiology Microbiology 04/25/17 Blood Culture, Received Pending 04/25/17 Blood Culture, Received Pending Allergies Coded Allergies: No Known Allergies (Unverified , 04/25/17) Home Medications Scheduled Bupropion Hcl (Bupropion HCl Xl) 150 Mg Tab, 150 MG PO DAILY, (Reported) Fluoxetine Hcl (Fluoxetine HCl) 20 Mg Cap, 40 MG PO DAILY, (Reported) Metformin Hydrochloride (Metformin HCl) 500 Mg Tab, 500 MG PO BID, (Reported) Scheduled PRN Ibuprofen (Ibuprofen) 200 Mg Tab, 800 MG PO Q6H PRN for PAIN, (Reported) Oxycodone/Acetaminophen (Oxycodone/Acetaminophen 5-325 mg) 1 Tab Tab, 1 TAB PO Q6H PRN for PAIN, (Reported) MILY STEPHEN MD Apr 26, 2017 00:24
--- NOTE | 2017-04-26 00:41 | REP ---
Clinical: Pain. Technique: Neutral AP and frog lateral views of the left hip. Findings: There is complete joint space obliteration with remodeling along the superior aspect of the acetabulum and underlying femoral head as well as subchondral heterogeneity and marginal spurring. Small periarticular calcifications are also identified along the superior aspect of the joint space. Impression: Advanced degenerative changes. Signed by Edwin Brice MD 04/26/2017 12:32 A
[2017-04-26] MEDS ORDERED: GLUCOSE 4 GM CHEW TABLET PO PRN (00:45)
[2017-04-26] MEDS ORDERED: DEXTROSE 50% 50 ML SYRINGE IV PRN (00:45)
[2017-04-26] MEDS ORDERED: GLUCAGON FOR INJ 1 MG VIAL (J1610) SC PRN (00:45)
[2017-04-26] MEDS: PERCOCET 5MG/325MG TAB PO PRN ×3 (00:54→20:20)
[2017-04-26] MEDS ORDERED: VANCOMYCIN HCL 500 MG in D5W MINI-BAG PLUS 100 ML IV ONE ×3 (01:00→03:00)
[2017-04-26] MEDS: MORPHINE 2 MG/ML 1ML SYRINGE IV PRN ×4 (01:08→22:30)
[2017-04-26 01:12] LABS: INR 1.07
--- NOTE | 2017-04-26 01:55 | PHACANCOPD ---
PHARMACY VANCOMYCIN DOSING Pt Demographics Demographics Patient Age:61 , Weight:77.110 , Gender: male Adjusted Body Weight Date: 04/26/17, Adjusted Body Weight: [74] Kg Events Past 24 Hours Events Past 24 Hours: NO: Dialysis, Diuretic Therapy, Change in CrCl, Fever, Elevation in WBC, Pending Diagnostics, Pending Procedures, Other Vancomycin Vancomycin Target Ranges: 15-20 mcg/ml Vancomycin Load Y/N: Yes Load Dose Date Time Vancomycin Load Dose: 1500MG Date: 04-26 Time: 0200 Vancomycin Dose Date: 04/26/17. Current Vancomycin Dose: [1000MG Q8H] Intermittent Dosing?: No Labs Labs Item Value Date Time White Blood Count 10.2 K/mm3 H 04/25/171942 Creatinine 0.81 MG/DL 04/25/171942 Blood Urea Nitrogen 16 MG/DL 04/25/171942 Vital Signs Label Value Date Time Patient Temperature 99.0 degrees F 04/25/172237 Temperature Source Temporal 04/25/172237 Micro Microbiology 04/25/17 Blood Culture, Received Pending 04/25/17 Blood Culture, Received Pending Creatinine Clearance Date:04/26/17. Creatinine Clearance: [90]. Pending Labs Trough 06-09 @1700 Assessment and Plan Maintaining Current Dose?: Yes Reason for dose change: No Dose Change Pharmacist Note Pharmacist Note Date: 04/26/17. Pharmacist note:Dosed at 1000mg q8h with a trough ordered for 06- 09 @1700. Will continue to monitor and make adjustments as needed. YESSENIA [facility]BB [facility] Apr 26, 2017 01:55
[2017-04-26] MEDS: NS 1,000 ML IV SCH ×3 (02:22→18:00)
[2017-04-26] MEDS: VANCOMYCIN HCL 1,000 MG, VIAL MATE ADAPTER 1 EACH in D5W 250 ML IV SCH ×3 (02:23→19:00)
[2017-04-26] MEDS: PIPERACILLIN/TAZOBACTAM SOD 3.375 GM in D5W MINI-BAG PLUS 50 ML IV SCH ×4 (04:44→22:30)
--- NOTE | 2017-04-26 05:52 | HPEPDOC ---
General Date of Admission Apr 26, 2017 at 00:08 Other Providers PCP from [place] Attending Physician: GISEL ALDRICH DO Chief Complaint The patient is a 61-year-old male admitted with a reason for visit of Septic Arthritis. Source: Patient Exam Limitations: No limitations Timing/Duration: Day(s) Severity: Severe Associated Symptoms: Fever, Malaise History of Present Illness 61-year-old male, history of left hip abscess in January 2017, leading to septic arthritis, underwent 13 weeks of IV antibiotics in [facility]. He was recently discharged and moved to [place] last month. Now his complaining of left hip pain, fever, chills for last few days. He had difficulty ambulating. there is no new trauma Home Medications Scheduled Bupropion Hcl (Bupropion HCl Xl) 150 Mg Tab, 150 MG PO DAILY, (Reported) Fluoxetine Hcl (Fluoxetine HCl) 20 Mg Cap, 40 MG PO DAILY, (Reported) Metformin Hydrochloride (Metformin HCl) 500 Mg Tab, 500 MG PO BID, (Reported) Scheduled PRN Ibuprofen (Ibuprofen) 200 Mg Tab, 800 MG PO Q6H PRN for PAIN, (Reported) Oxycodone/Acetaminophen (Oxycodone/Acetaminophen 5-325 mg) 1 Tab Tab, 1 TAB PO Q6H PRN for PAIN, (Reported) Allergies Coded Allergies: No Known Allergies (Unverified , 04/25/17) Past Medical History Medical History Left hip septic arthritis. The methicillin sensitive Staphylococcus aureus Surgical History A spinal fusion of L5-S1. Hip surgery Family History Significant Family History: No pertinent family hx Social History * Smoker: less than 1 pack/day Alcohol: Denies Drugs: denies Recent Travel/Sick Contacts: Denies: Recent travel, Recent sick contacts Psychosocial History: No pertinent psych hx Review of Symptoms Constitutional: Reports: Chills, Fever, Denies: Night Sweats Eyes: Denies: Pain, Vision change ENT: Denies: Head Aches, Ear Pain, Dysphagia Skin: Denies: Rash, Lesions, Breakdown Pulmonary: Denies: Dyspnea, Cough Cardiovascular: Denies: Chest Pain, Palpitations, Orthopnea, Paroxysmal Noc. Dyspnea, Lt Headedness Gastrointestinal: Denies: Nausea, Vomiting, Abdominal Pain, Diarrhea Genitourinary: Denies: Dysuria, Frequency, Incontinence, Retention Hematologic: Denies: Bruising, Bleeding Excessively Musculoskeletal: Reports: Back Pain, Joint Pain, Denies: Neck Pain, Muscle Pain, Spasms Neurological: Denies: Weakness, Numbness, Change in speech, Confusion Psych: Reports: Mood Normal, Denies: Depression, Memory Issues Physical Examination General Exam: Positive: Alert, No Acute Distress Eye Exam: Positive: PERRLA, Conjunctiva & lids normal, EOMI, Negative: Sclera icteric ENT Exam: Positive: Atraumatic, Mucous membr. moist/pink, Pharynx Normal Neck Exam: Positive: Supple, Negative: JVD, thyromegaly Chest Exam: Positive: Clear to auscultation, Normal air movement Heart Exam: Positive: Rate Normal, Regular Rhythm, Normal S1, Normal S2, Negative: Murmurs, Rubs Telemetry: Positive: No significant arrhythmia Abdomen Exam: Positive: Normal bowel sounds, Soft, Negative: Tenderness, Hepatospenomegaly Extremity Exam: Positive: Normal pulses, Tenderness, Other (surgical scar on left hip. Erythema Tenderness), Negative: Clubbing, Cyanosis, Edema Skin Exam: Positive: Nl turgor and temperature, Negative: Breakdown, Lesion Neuro Exam: Positive: Normal Gait, Normal Speech, Cranial Nerves 3-12 NL, Reflexes 2+ Psych Exam: Positive: Mental status NL, Mood NL, Oriented x 3 Vital Signs Vital Signs Date Time Temp Pulse Resp B/P (MAP) Pulse Ox O2 Delivery O2 Flow Rate FiO2 04/26/17 03:53 16 04/26/17 01:09 96 04/25/17 22:38 99.0 117 132/78 (96) Room Air Laboratory Data Labs 24H Laboratory Tests 2 04/25/17 19:43: White Blood Count 10.2H, Red Blood Count 4.83, Hemoglobin 13.7L, Hematocrit 40.6L, Mean Corpuscular Volume 84.0, Mean Corpuscular Hemoglobin 28.4, Mean Corpuscular Hemoglobin Concent 33.8, Red Cell Distribution Width 17.7H, Platelet Count 334, Neutrophils (%) (Auto) 74.7H, Lymphocytes (%) (Auto) 16.3L, Monocytes (%) (Auto) 6.0H, Eosinophils (%) (Auto) 1.5, Basophils (%) (Auto) 0.7 , Neutrophils # (Auto) 7.6, Lymphocytes # (Auto) 1.7, Monocytes # (Auto) 0.6, Eosinophils # (Auto) 0.2, Basophils # (Auto) 0.1, Large Unclassified Cells % 0.9 , Large Unclassified Cells # 0.1, Erythrocyte Sedimentation Rate 66H, Anion Gap 8, Glomerular Filtration Rate > 60.0, Estimated Mean Plasma Glucose 137H, Hemoglobin A1c 6.4H, Blood Urea Nitrogen 16, Creatinine 0.81, Sodium Level 136, Potassium Level 4.4, Chloride Level 106, Carbon Dioxide Level 22, Calcium Level 9.0, Aspartate Amino Transf (AST/SGOT) 11L, Alanine Aminotransferase (ALT/SGPT) 19, Alkaline Phosphatase 119H, Total Bilirubin 0.3, Total Protein 7.6, Albumin 3.2, Magnesium Level 1.5L, C-Reactive Protein, Quantitative 11.40H, Albumin/ Globulin Ratio 0.73L 04/26/17 00:53: Prothrombin Time 14.0, Prothromb Time International Ratio 1.07 CBC/BMP Laboratory Tests 04/25/17 19:43 Red Blood Count 4.83, Mean Corpuscular Volume 84.0, Mean Corpuscular Hemoglobin 28.4, Mean Corpuscular Hemoglobin Concent 33.8, Red Cell Distribution Width 17.7 H, Neutrophils (%) (Auto) 74.7 H, Lymphocytes (%) (Auto) 16.3 L, Monocytes (%) (Auto) 6.0 H, Eosinophils (%) (Auto) 1.5, Basophils (%) (Auto) 0.7, Neutrophils # (Auto) 7.6, Lymphocytes # (Auto) 1.7, Monocytes # (Auto) 0.6, Eosinophils # (Auto) 0.2, Basophils # (Auto) 0.1, Calcium Level 9.0, Aspartate Amino Transf (AST/SGOT) 11 L, Alanine Aminotransferase (ALT/SGPT) 19, Alkaline Phosphatase 119 H, Total Bilirubin 0.3, Total Protein 7.6, Albumin 3.2 Microbiology Microbiology 04/25/17 Blood Culture, Received Pending 04/25/17 Blood Culture, Received Pending Assessment/Plan 61-year-old male recent history of left hip septic arthritis, status post Chavez and a IV antibiotics for 13 weeks growing MSSA and presented with a pain in the right hip, likely due to septic arthritis again Problems (1) Septic arthritis Status: Acute Problem Text: Discussed with orthopedics as an as started IV Zosyn and vancomycin presented with taken to the OR for surgical debridement (2) Tobacco abuse Problem Text: Continue with nicotine patch Plan / VTE VTE Prophylaxis Ordered?: Yes Plan Diet: Make NPO Medications: Change to IV Diagnostics: Repeat Labs in AM Anticipated Discharge: Sub Acute Rehab EUGENIO VITALE MD Apr 26, 2017 05:52
[2017-04-26] MEDS ORDERED: metFORMIN (GLUCOPHAGE) 500 MG TAB PO SCH (08:00)
[2017-04-26] MEDS: NICOTINE 14 MG/24 HR TRANSDERMAL TD SCH (09:26)
[2017-04-26] MEDS: FLUoxetine 20 MG CAP PO SCH (09:26)
[2017-04-26] MEDS: buPROPion **XL** TABLET 150MG (WELLBUTRIN XL) PO SCH (09:28)
[2017-04-26] MEDS ORDERED: MORPHINE 4 MG/ML 1ML SYRINGE As Ordered ONE ×2 (11:35→11:52)
[2017-04-26] MEDS: MORPHINE 4 MG/ML 1ML SYRINGE IV SCH ×2 (11:42→11:56)
--- NOTE | 2017-04-26 11:57 | ECGEPIP ---
Stationary ECG Study [facility] - ED Test Date: 2017-04-25 Pat Name: MARY JO JEAN Department: Room: [place] [address] Gender: M Marketing Support Coordinator: krishna : 1955 Requested By: SHANTE SALDIVAR Order Number: [id number] Reading MD: Татьяна Lopez Measurements Intervals [place] Rate: 116 P: 18 AL: 114 QRS: 72 QRSD: 97 T: 55 QT: 340 QTc: 473 Interpretive Statements SINUS TACHYCARDIA WITH SHORT AL INTERVAL POSSIBLE LEFT ATRIAL ENLARGEMENT NONSPECIFIC T-WAVE ABNORMALITY ABNORMAL RHYTHM ECG Electronically Signed On 04-26-2017 11:57:38 EDT by Татьяна Lopez
[2017-04-26] MEDS ORDERED: LIDOCAINE 2% INJ 100 MG/5 ML SDV (FOR ANES.) As Ordered ONE (12:07)
[2017-04-26] MEDS ORDERED: PROPOFOL 200 MG/20 ML VIAL As Ordered ONE (12:07)
[2017-04-26] MEDS ORDERED: ROCURONIUM BROMIDE 50 MG/5 ML VIAL As Ordered ONE (12:07)
[2017-04-26] MEDS ORDERED: MIDAZOLAM INJ 2 MG/2 ML VIAL (J2250) As Ordered ONE (12:10)
[2017-04-26] MEDS ORDERED: fentaNYL 100 MCG/2 ML INJECTION (J3010) As Ordered ONE ×2 (12:11→16:04)
[2017-04-26] MEDS ORDERED: ceFAZolin 1GM INJ (J0690) As Ordered ONE ×2 (12:13→14:32)
[2017-04-26] MEDS ORDERED: VANCOMYCIN 1000 MG/20 ML VIAL (J3370) As Ordered ONE ×2 (12:13→13:48)
[2017-04-26] MEDS ORDERED: TOBRAMYCIN SULF 1.2 GM VIAL As Ordered ONE (12:13)
[2017-04-26] MEDS ORDERED: ONDANSETRON 4MG/2ML VIAL (J2405) As Ordered ONE (13:17)
[2017-04-26] MEDS ORDERED: NEOSTIGMINE 1MG/ML 5 ML SYRINGE (J2710) As Ordered ONE (13:17)
[2017-04-26] MEDS ORDERED: GLYCOPYRROLATE INJ 0.2 MG/ML 2 ML VIAL As Ordered ONE (13:17)
[2017-04-26] MEDS ORDERED: MORPHINE 10 MG/ML 1ML VIAL As Ordered ONE (13:33)
[2017-04-26] MEDS ORDERED: PHENYLephrine HCL 500 MCG/5 ML (100MCG/ML) SYRINGE (J2370) As Ordered ONE ×2 (14:05→14:13)
[2017-04-26] MEDS ORDERED: ONDANSETRON 4MG/2ML VIAL (J2405) IV PRN (15:30)
[2017-04-26] MEDS ORDERED: LR 1,000 ML IV SCH (15:30)
[2017-04-26] MEDS ORDERED: MORPHINE 2 MG/ML 1ML SYRINGE IV PRN (15:30)
[2017-04-26] MEDS ORDERED: PERCOCET 5MG/325MG TAB PO PRN (15:30)
[2017-04-26] MEDS ORDERED: MORPHINE 2 MG/ML 1ML SYRINGE As Ordered ONE (16:04)
[2017-04-26] MEDS: fentaNYL 100 MCG/2 ML INJECTION (J3010) IV PRN ×4 (16:05→16:20)
[2017-04-27] MEDS: PERCOCET 5MG/325MG TAB PO PRN ×5 (00:35→23:10)
[2017-04-27 01:09] LABS: INR 1.22
[2017-04-27 02:00] VITALS: BP 129/89
[2017-04-27] MEDS: MORPHINE 2 MG/ML 1ML SYRINGE IV PRN (02:18)
[2017-04-27] MEDS: VANCOMYCIN HCL 1,000 MG, VIAL MATE ADAPTER 1 EACH in D5W 250 ML IV SCH ×3 (02:19→17:18)
[2017-04-27] MEDS: PIPERACILLIN/TAZOBACTAM SOD 3.375 GM in D5W MINI-BAG PLUS 50 ML IV SCH ×3 (04:14→16:13)
[2017-04-27] MEDS: NS 1,000 ML IV SCH (05:14)
[2017-04-27 06:00] VITALS: BP 140/76
[2017-04-27 07:07] LABS: MEAN CORPUSCULAR HEMOGLOBIN 28.5 pg (27.0-33.0); MEAN CORPUSCULAR HGB CONC 33.6 g/dl (32.0-36.5); MEAN CORPUSCULAR VOLUME 84.8 fl (80.0-96.0); RED CELL DISTRIBUTION WIDTH 17.4 % (11.5-14.5); WHITE BLOOD COUNT 8.9 K/mm3 (4.0-10.0)
[2017-04-27 07:22] LABS: ALBUMIN 2.3 GM/DL (3.2-5.2); ALBUMIN/GLOBULIN RATIO 0.61 (1.00-1.93); ALKALINE PHOSPHATASE 80 U/L (45-117); ALT/SGPT 13 U/L (12-78); ANION GAP 9 MEQ/L (8-16); AST/SGOT 10 U/L (15-37); BILIRUBIN,TOTAL 0.3 MG/DL (0.2-1.0); BLOOD UREA NITROGEN 11 MG/DL (7-18); CARBON DIOXIDE LEVEL 22 MEQ/L (21-32); CHLORIDE LEVEL 103 MEQ/L (98-107); CREATININE FOR GFR 0.83 MG/DL (0.70-1.30); GLOMERULAR FILTRATION RATE > 60.0 (>49); GLUCOSE, FASTING 167 MG/DL (80-110); POTASSIUM SERUM 3.7 MEQ/L (3.5-5.1); SODIUM LEVEL 134 MEQ/L (136-145); TOTAL PROTEIN 6.1 GM/DL (6.4-8.2)
--- NOTE | 2017-04-27 08:00 | RO ---
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 OPERATIVE PROCEDURES: 1. Left hip resection arthroplasty. 2. Left hip synovectomy, irrigation and debridement. 3. Left hip interjection of an acetabular cement spacer with antibiotic impregnated cement, resorbable beads. SURGEON: Enio May MD DISPOSAL PLANT OPERATOR: Mark Adkins MD ANESTHESIA: General endotracheal tube. COMPLICATIONS: None. ESTIMATED BLOOD LOSS: 500 mL. SPECIMENS: Femoral head, synovium and fluid from the left hip joint. FINDINGS: He had gross purulence within the hip joint that communicated with the anterior previously placed hip wound. In addition, there is significant bony destruction of the acetabulum and the femoral head, was all consistent with osteomyelitis and septic arthritis of the left hip. There were multiple small pieces of fragmented bone in the soft tissues and within the joint and into the anterior soft tissue wound. INDICATION: He is a 61-year-old male who had returned about 2 to 3 weeks ago from [place], [place], where out there in mid January he apparently developed a septic arthritis of the left hip and was treated with surgical irrigation and debridement and IV antibiotics. This appears to have been done through an anterior approach. 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 I assumed care for him this morning. He is noted to have an elevated sedimentation rate and CRP and severe pain in that left hip with gross induration, erythema and tenderness around the previous anterior hip wound and presumed recurrent septic arthritis. Diagnosis was made and we discussed this with multiple providers, hospitalist service, including telephone consultation with Dr. Elias Acosta at [facility] about the proper way to approach this problem at this point. We felt the best option would be resection arthroplasty and antibiotic cement beads placement, given the failed attempt at joint preservation for this infection. Consideration for further reconstruction could be made if we can get this infection cleared, or the other alternative would be permanent resection arthroplasty. This was discussed with the patient. He understands this, but our immediate concern is getting rid of this obvious recurrent infection because it appears that it is getting bone involvement with osteomyelitis, so we need to be relatively aggressive with our debridement. So he understands this, consent has been signed and we are proceeding now. DESCRIPTION OF PROCEDURE: Antibiotics were given intravenously and had already been started preoperatively by the hospitalist service. He was taken to the operating room and successful general endotracheal anesthetic was established and Cameron catheter was placed. He was placed in lateral decubitus position on a carrillo bag, well leg padded especially the peroneal nerve of the down leg and an axillary roll. His left hip area was carefully prepped and draped in the usual sterile fashion. Then after appropriate time out, we made a direct lateral approach to the hip avoiding the previous anterior incision. Bovie cautery was used to coagulate the crossing vessels down to the deep fascia. Tensor fascia was divided and then underlying this we split the gluteus medius at the posterior one-third, anterior two-third junction, divided that, divided the gluteus minimus and the anterior hip capsule down to the hip joint. Upon entering the joint and once we dissected more anteriorly, we came upon gross purulent material, and this was sent with aerobic and anaerobic cultures as well as synovial biopsies with the rongeurs obtained. We actually were able to dissect anteriorly up and into the previous anterior tissue plane that had been utilized for the prior irrigation and debridement and was easily traceable all the way to the subcutaneous tissues. Within this area there were multiple flecks and wafers of cortical bone consistent with destructive osteomyelitis that had been occurring. Eventually we were able to dissect the soft tissues off the proximal femur anteriorly and then dislocate the hip anteriorly. The head was flattened and clearly necrotic consistent from the ongoing infection. The saw was used to transect the femoral neck at the base and the femoral head was sent for specimen and cultures. Fairly aggressive synovectomy was then performed within the depths of the acetabulum and some of the synovium again was added to the specimen. Once fairly aggressive synovectomy had been performed, we began reaming the acetabulum with a 48 mm reamer, up to a 52 and then a 54. The acetabular bone was noted to be very soft, so I was not aggressive with the acetabular reamer for fear of going deep into the pelvis. I used a spoon curette to help debride any remaining hematoma, clot and synovial necrotic tissues from the depth of the acetabulum and within the joint capsule and this dissection again was carried into the previous anterior wound from underneath. Clearly, there was purulent connection to the joint and the anterior wound. A copious amount of pulsatile lavage irrigant solution was instilled into the wound during the operation. It was mixed with antibiotics. At this point, then my medical assistant, Dr. Adkins, formed a large ball of cement to fit within the acetabulum as a space occupying lesion as well as to provide high concentration of local antibiotic in hopes that it will keep the soft tissue planes open for potential future reconstructive surgery if it is feasible. In addition, we used the [employer] absorbable beads and mixed those on the back table as well. The beads were mixed with 2 grams of vancomycin and 1.2 grams of tobramycin. The ball of the acetabulum was mixed with two bags of tobramycin antibiotic cement with an additional gram of vancomycin powder added. We sized the acetabulum. It was about a 56 to 58, and thus we used a 54 mm ball. It turns out to be the diameter of the bulb suction device. That bulb suction device was filled with antibiotic cement after being mixed on the back table, and then once it had been hardened it was placed into the depths of the acetabulum. We then placed a drain from inside out up into the anterior hip wound where the abscess pocket had developed and made sure that drain stayed within that pocket and down into the hip joint. We then placed a second drain from posterior out through the abductors, then out through the undersurface of the tensor fascia more posteriorly and then distally out through the skin. Then, after irrigating once again, we put in the remaining antibiotic beads into the wound and then closed the anterior capsule, gluteus minimus and gluteus medius back anatomically through the trochanter with several interrupted #1 PDS sutures, taking great care to be sure we did not capture the drain with our sutures. Irrigated again, then closed the tensor fascia with multiple interrupted #1 PDS sutures, irrigating it again, closed the deep subdermal tissues with interrupted #2-0 PDS sutures, skin was closed with titus, covered with Adaptic dry sterile bulky dressing. He was then turned supine, placed in an abduction pillow brace and then was awakened from general endotracheal tube anesthesia and transferred to the recovery room in stable condition. There were no intraoperative complications. BLAKE
--- NOTE | 2017-04-27 09:07 | REP ---
Left hip two views postoperative study: Comparison is 04/25/2017. The femoral head and neck have been resected. There is a there is a large opaque femoral head prosthesis. There are numerous radiopaque pellets superimposed over the femoral neck and intertrochanteric areas. There are two surgical drains. Skin titus are incidentally noted. Signed by Keenan Curtis MD 04/27/2017 08:58 A
[2017-04-27] MEDS: FLUoxetine 20 MG CAP PO SCH (09:30)
[2017-04-27] MEDS: MOM 30ML SUSPENSION UDC PO SCH (09:30)
[2017-04-27] MEDS: MIRALAX *UNIT DOSE* 17GM PACKET PO SCH (09:30)
[2017-04-27] MEDS: NICOTINE 14 MG/24 HR TRANSDERMAL TD SCH (09:31)
[2017-04-27] MEDS: buPROPion **XL** TABLET 150MG (WELLBUTRIN XL) PO SCH (09:31)
[2017-04-27] MEDS: SENOKOT S TAB PO SCH ×2 (09:31→21:20)
[2017-04-27 10:00] VITALS: BP 131/66
--- NOTE | 2017-04-27 11:53 | IPN ---
DATE: 04/27/2017 SUBJECTIVE: The patient seen and examined in the room today. The patient complained about significant pain at the left hip. This morning, the patient also had a temperature of 100.9. OBJECTIVE: VITAL SIGNS: Temperature is 100.9, pulse is 114, respiration rate 18, blood pressure 140/76, pulse oximetry 90% on room air. GENERAL: Agitated. Alert, awake and oriented times three. HEENT: Normocephalic, atraumatic. Extraocular movements grossly intact. CARDIOVASCULAR: Tachycardic. Positive S1, S2. LUNGS: Clear to auscultation bilaterally. ABDOMEN: Soft, nontender, nondistended. Bowel sounds present. No rebound. No guarding. EXTREMITIES: There are 2 tube drainage of the left hip. There is serosanguineous fluid in the collecting tube. However, tender to palpation. The patient is refused to move the left hip significantly due to significant pain. No lower extremity edema is appreciated. LABORATORY DATA: WBC 8.9, hemoglobin 9.3, hematocrit 27.7, platelet count is 258. Sodium 134, potassium 3.7, chloride is 103, carbon dioxide 22, BUN 11, creatinine 0.83, GFR greater than 60. Fasting glucose is 167. Calcium is 8. Total bilirubin is 0.3. AST 10, ALT 13, alkaline phosphatase is 80. C-reactive protein is 16.8. Total protein is 6.1. Albumin 2.3. MICROBIOLOGY: One set of blood cultures show staphylococcus aureus. The hip wound cultures show staphylococcus aureus. Sensitivity is not available at this moment. The left hip x-ray shows a large opaque femoral head prosthesis. There are two surgical drains. ASSESSMENT AND PLAN: 1. Left septic hip. The patient is on vancomycin and Zosyn. Cultures still pending. Waiting for the final result with sensitivity. The patient's white count is improving. The patient had a an orthopedic procedure done yesterday. Today, is postprocedure day 1. 2. Tobacco abuse. Nicotine patch. 3. History of right wrist fracture. The patient wears a splint. 4. Major depressive disorder. The patient had a recent admission to inpatient mental health unit ([facility]) from April 16, 2017 to April 19, 2017. 5. History of pulmonary nodules. The patient had 2.2 x 1 cm right lower lobe nodule and 5 mm at the lateral left lower lobe. This shows a nodule the size of 1.7 x 1.1 cm at the left upper lobe. 4 mm nodule located lateral left upper lobe. An 8 mm nodule at the left major fissure. The patient is due for repeat CT on May 07, 2017. 6. Diabetes. The patient will be on the sliding scale. The patient has a A1c of 6.4. 7. History of aortic arch aneurysm. 8. Deep venous thrombosis (DVT) prophylaxis. Will refer the anticoagulation to the orthopedic team. At this moment, the patient has thromboembolism deterrents (TEDs) and sequential compression devices. MTDD
[2017-04-27] MEDS: HumaLOG INSULIN (NovoLOG) PER UNIT SC SCH ×3 (12:58→21:20)
[2017-04-27 14:00] VITALS: BP 124/59
[2017-04-27] MEDS ORDERED: WARFARIN SOD 5 MG TAB PO ONE (17:00)
[2017-04-27 22:00] VITALS: BP 120/69
--- NOTE | 2017-04-27 22:50 | CR ---
DATE OF CONSULTATION: 04/26/2017 at 6 p.m. REASON FOR CONSULTATION: Asked to consult by hospitalist for evaluation of left hip septic arthritis, recurrent. HISTORY OF PRESENT ILLNESS: Mr. Timmons is a pleasant 61-year-old gentleman with a history of left prairie band hip septic arthritis diagnosed in [place] in January 2017, with a history of methicillin-sensitive Staphylococcus aureus (MSSA). He had undergone irrigation and debridement and was treated with 12 weeks of intravenous (IV) antibiotics. He does not recall what was the antibiotic's name, but it was every eight hours. He stayed in the hospital during that whole time and according to the patient, he needed 12 weeks because the infection would not resolve. The patient moved to [place] to be closer to family. He was in mental health M004/16 to 04/19, and discharged after he was treated for depression. Over the last few days prior to admission, he developed acute onset of hip pain with fever, chills and presented to emergency room for evaluation. He had significant pain about the hip and was unable to bear weight. The patient had a pelvic CT which showed destructive changes at the left hip with flattening of the femoral head, left-sided joint effusion with a fluid collection in the anterolateral soft tissue of the thigh measuring 3.9 x 2.8 cm, suspicious for an abscess. Arthritis of the right hip as well. No acute fracture. The patient was taken to the operating room by Dr. May, and I saw him after the operating room (OR). He was still in the recovery room. He was somewhat lethargic and in a lot of pain. Findings by Dr. May showed gross purulence within the hip joint that communicated with the anterior soft tissue, consistent with osteomyelitis and septic arthritis of the left hip. He irrigated and debrided the joint. He removed the femoral head and placed some antibiotic beads. The femoral head was necrotic. PAST MEDICAL HISTORY: Significant for non-insulin dependent diabetes on metformin, depression, septic arthritis of the left hip MSSA status post 12 weeks of IV antibiotics in [place], previously operated by Dr. Kaiser Timmons. PAST SURGICAL HISTORY: Left hip I and D, spinal fusion L5-S1. FAMILY HISTORY: Nonrevealing. SOCIAL HISTORY: He was with three kids. He just broke up with his girlfriend. He has been in [place] for nine years and moved back home. He is currently living with his ex-. 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 He smokes a pack and half to two packs a day. Alcohol rare. REVIEW OF SYSTEMS He has fever, chills. No nausea, vomiting or diarrhea. No abdominal pain. He has a cough from smoker's cough. Left hip pain. He does complain of being depressed. PHYSICAL EXAMINATION: VITAL SIGNS: On physical exam, his temperature was 99.9. This is a note for April 26 at 6 p.m. the patient was seen, pulse 121, respirations 18, blood pressure 134/74, oxygen saturation 97% on room air. HEART: Normal S1, S2. No murmurs, tachycardiac. LUNGS: Clear, diminished at bases. ABDOMEN: Soft, nontender. No hepatosplenomegaly. EXTREMITIES: No clubbing, cyanosis or edema. Left hip has a drain in place. It was not examined. The patient had just come out of the OR. He was in a lot of pain. LABORATORY DATA: White count on 04/25 was 10.2, hemoglobin 13.7, hematocrit 40.6, platelets 334, 74% neutrophils, 16% lymphocytes, 6% monocytes. ESR 66. Sodium 136, potassium 4.4, chloride 106, bicarb 22, BUN 16, creatinine 0.8, glucose 135. HbA1c is 6.4, calcium 9, magnesium 1.5, AST 11, ALT 19, alk phos 119, CRP 11.4, total protein 7.6, albumin 3.2, IMAGING: Blood culture and 04/25 was positive for Staphylococcus aureus one out of 2, and hip culture Gram stain had few white cells, no organisms seen. Culture pending. X-RAYS Hip x-ray shows advanced degenerative changes, and pelvic CT shows septic arthritis with joint fusion and destructive changes of the femoral head. IMPRESSION: This is a 61-year-old gentleman with non-insulin dependent diabetes and depression with recurrent septic arthritis of the left hip in spite of treatment with 12 weeks of intravenous antibiotic in [place]. The patient has a recurrence and has necrotic septic joint. The femoral head has been removed. Antibiotic beads have been placed. The patient will require at least another 6-8 weeks of IV antibiotics, and depending on clinical improvement whether he would be a candidate for a hip replacement at some point, or he will need chronic suppressive therapy will remain to be determined. PLAN: Discontinue IV Zosyn. The patient has a history of MSSA, but since I do not have those records, I would continue with IV vancomycin until cultures are available. Once cultures are available. I would suggest switching to nafcillin if MSSA along with rifampin as the patient had recurrence in spite of 12 weeks of antibiotics. His liver function tests were normal and therefore should be able to tolerate rifampin. We will schedule him for a peripherally inserted central catheter (PICC) line on Saturday. He will need IV antibiotics. Will consult patient and family services (PFS) for home IV antibiotics as well, I have called [facility] for records and called the office of Dr. Timmons, who will call me back on Saturday.
[2017-04-28 00:20] LABS: INR 1.15
[2017-04-28] MEDS: VANCOMYCIN HCL 1,000 MG, VIAL MATE ADAPTER 1 EACH in D5W 250 ML IV SCH (01:30)
[2017-04-28 06:00] VITALS: BP 132/76
[2017-04-28 06:53] LABS: MEAN CORPUSCULAR HEMOGLOBIN 28.3 pg (27.0-33.0); MEAN CORPUSCULAR HGB CONC 34.2 g/dl (32.0-36.5); MEAN CORPUSCULAR VOLUME 82.8 fl (80.0-96.0); RED CELL DISTRIBUTION WIDTH 17.5 % (11.5-14.5); WHITE BLOOD COUNT 6.5 K/mm3 (4.0-10.0)
[2017-04-28 07:17] LABS: ALBUMIN 2.3 GM/DL (3.2-5.2); ALBUMIN/GLOBULIN RATIO 0.58 (1.00-1.93); ALKALINE PHOSPHATASE 98 U/L (45-117); ALT/SGPT 16 U/L (12-78); ANION GAP 8 MEQ/L (8-16); AST/SGOT 14 U/L (15-37); BILIRUBIN,TOTAL 0.3 MG/DL (0.2-1.0); BLOOD UREA NITROGEN 8 MG/DL (7-18); CALCIUM LEVEL 8.6 MG/DL (8.8-10.2); CARBON DIOXIDE LEVEL 26 MEQ/L (21-32); CHLORIDE LEVEL 104 MEQ/L (98-107); CREATININE FOR GFR 0.67 MG/DL (0.70-1.30); GLOMERULAR FILTRATION RATE > 60.0 (>49); GLUCOSE, FASTING 151 MG/DL (80-110); POTASSIUM SERUM 3.7 MEQ/L (3.5-5.1); SODIUM LEVEL 138 MEQ/L (136-145); TOTAL PROTEIN 6.3 GM/DL (6.4-8.2)
[2017-04-28] MEDS: PERCOCET 5MG/325MG TAB PO PRN ×4 (07:17→21:17)
[2017-04-28 07:21] LABS: INR 1.09
[2017-04-28] MEDS: HumaLOG INSULIN (NovoLOG) PER UNIT SC SCH ×4 (07:30→21:00)
[2017-04-28] MEDS: MOM 30ML SUSPENSION UDC PO SCH (08:21)
[2017-04-28] MEDS: buPROPion **XL** TABLET 150MG (WELLBUTRIN XL) PO SCH (08:21)
[2017-04-28] MEDS: FLUoxetine 20 MG CAP PO SCH (08:21)
[2017-04-28] MEDS: NAFCILLIN SOD 2 GM in D5W MINI-BAG PLUS 100 ML IV SCH ×4 (08:21→21:16)
[2017-04-28] MEDS: MIRALAX *UNIT DOSE* 17GM PACKET PO SCH (08:21)
[2017-04-28] MEDS: SENOKOT S TAB PO SCH ×2 (08:21→21:17)
[2017-04-28] MEDS: NICOTINE 14 MG/24 HR TRANSDERMAL TD SCH (08:22)
[2017-04-28 14:00] VITALS: BP 150/75
[2017-04-28] MEDS ORDERED: WARFARIN SOD 7.5 MG TAB PO ONE (17:00)
--- NOTE | 2017-04-28 21:54 | IPN ---
DATE: 04/28/2017 SUBJECTIVE: Patient is seen and examined in the room today. The patient is still complaining about the left hip pain, but he noticed the drainage from the left hip has decreased significantly. Patient denies recurrence of fever for the past 24 hours. No overnight events reported. OBJECTIVE: VITAL SIGNS: Temperature is 98.8, pulse is 101, respiration rate 18, blood pressure is 132/76, pulse oximetry 95% in room air. GENERAL: No signs of acute distress. Alert and oriented times three. HEENT: Normocephalic, atraumatic. Extraocular movements grossly intact. CARDIOVASCULAR: Tachycardic. Positive S1, S2. LUNGS: Clear to auscultation bilaterally. ABDOMEN: Soft, nontender, nondistended. Bowel sounds present. No rebound. No guarding. EXTREMITIES: There is tube drainage from the left hip. There is serosanguineous fluid in the collecting tube. Tenderness to palpation. No lower extremity edema. No signs of cyanosis. LABORATORY DATA: WBC 6.5, hemoglobin 8.5, hematocrit 24.9, platelet count is 247. Sodium 138, potassium 3.7, chloride is 104, carbon dioxide 26, BUN 8, creatinine 0.67, GFR greater than 60. Fasting glucose is 151. Calcium is 8.6. Total bilirubin is 0.3. AST 14, ALT 16, alkaline phosphatase is 98. C-reactive protein is 18.5. Total protein is 6.3. Albumin 2.3. MICROBIOLOGY: Blood cultures from 04/25/2017 show staphylococcus aureus. The hip cultures show staphylococcus aureus. ASSESSMENT AND PLAN: 1. Left septic hip with necrosis. Cultures came back positive for methicillin-susceptible Staphylococcus aureus (MSSA). The patient's antibiotic was switched to nafcillin and rifampin per infectious disease specialist Dr. Romo's recommendation. The patient will have a scheduled appointment for PICC line insertion tomorrow. 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 Today is post operative day 2. 2. Tobacco abuse. On nicotine patch. 3. History of right wrist fracture on splint. 4. Major depressive disorder. The patient had an admission to inpatient mental health unit (IM) from April 16, 2017 to April 19, 2017. Patient is currently on Prozac and Wellbutrin. 5. History of pulmonary nodules. Most recent CT was performed on 04/19/2017. Patient may need continued outpatient followup. 6. Diabetes. Patient is on a sliding scale. Patient is on consistent carbohydrate diet. 7. History of aortic arch aneurysm. 8. Deep venous thrombosis (DVT) prophylaxis. Patient is on thromboembolic deterrent stockings (TEDS) and sequential compression devices (SCD).
[2017-04-28 22:00] VITALS: BP 140/72
[2017-04-29] MEDS: NAFCILLIN SOD 2 GM in D5W MINI-BAG PLUS 100 ML IV SCH ×6 (01:10→20:25)
[2017-04-29] MEDS: PERCOCET 5MG/325MG TAB PO PRN ×4 (01:11→16:36)
[2017-04-29 06:00] VITALS: BP 118/69
[2017-04-29 06:35] LABS: MEAN CORPUSCULAR HEMOGLOBIN 27.9 pg (27.0-33.0); MEAN CORPUSCULAR HGB CONC 33.5 g/dl (32.0-36.5); MEAN CORPUSCULAR VOLUME 83.2 fl (80.0-96.0); RED CELL DISTRIBUTION WIDTH 17.3 % (11.5-14.5)
[2017-04-29 06:39] LABS: INR 1.17
[2017-04-29 06:55] LABS: ALBUMIN 2.2 GM/DL (3.2-5.2); ALBUMIN/GLOBULIN RATIO 0.52 (1.00-1.93); ALKALINE PHOSPHATASE 104 U/L (45-117); ALT/SGPT 18 U/L (12-78); ANION GAP 8 MEQ/L (8-16); AST/SGOT 13 U/L (15-37); BILIRUBIN,TOTAL 0.5 MG/DL (0.2-1.0); BLOOD UREA NITROGEN 9 MG/DL (7-18); CARBON DIOXIDE LEVEL 27 MEQ/L (21-32); CHLORIDE LEVEL 102 MEQ/L (98-107); CREATININE FOR GFR 0.78 MG/DL (0.70-1.30); GLOMERULAR FILTRATION RATE > 60.0 (>49); GLUCOSE, FASTING 173 MG/DL (80-110); POTASSIUM SERUM 3.8 MEQ/L (3.5-5.1); SODIUM LEVEL 137 MEQ/L (136-145); TOTAL PROTEIN 6.4 GM/DL (6.4-8.2)
[2017-04-29] MEDS: HumaLOG INSULIN (NovoLOG) PER UNIT SC SCH ×4 (08:15→21:00)
[2017-04-29] MEDS: FLUoxetine 20 MG CAP PO SCH (08:16)
[2017-04-29] MEDS: SENOKOT S TAB PO SCH ×2 (08:16→20:09)
[2017-04-29] MEDS: buPROPion **XL** TABLET 150MG (WELLBUTRIN XL) PO SCH (08:16)
[2017-04-29] MEDS: NICOTINE 14 MG/24 HR TRANSDERMAL TD SCH (08:16)
[2017-04-29] MEDS: MIRALAX *UNIT DOSE* 17GM PACKET PO SCH (08:19)
[2017-04-29] MEDS: MOM 30ML SUSPENSION UDC PO SCH (08:19)
--- NOTE | 2017-04-29 12:48 | IPN ---
DATE OF VISIT: 04/29/2017 SUBJECTIVE: Patient is seen and examined in the room today. Patient is still complaining about the left hip discomfort. However, his pain manageable with pain medication. No overnight events reported. OBJECTIVE: VITAL SIGNS: Temperature is 98.3, pulse is 95, respiration 18, blood pressure is 118/69, pulse oximetry 95% in room air. GENERAL: No signs of acute distress. Alert and oriented times three. HEENT: Normocephalic, atraumatic. Extraocular movements grossly intact. CARDIOVASCULAR: Positive S1, S2. Regular rate. Heart rate is improving. RESPIRATORY: Clear to auscultation bilaterally. ABDOMEN: Soft, nontender, nondistended. Bowel sounds present. No rebound. No guarding. EXTREMITIES: There is still a drainage tube noted from the left hip. There is surgical dressing covering the left hip. Dressing clean and dry. No lower extremity edema. No sign of cyanosis. Patient has a splint on his right hand. LABORATORY DATA: WBC 4, hemoglobin 8.3, hematocrit is 24.5, platelet count is 263. Sodium is 137, potassium 3.8, chloride is 102, carbon dioxide 27, BUN 8, creatinine 0.78, GFR greater than 60, fasting glucose 173, calcium is 9, total bilirubin is 0.5, AST 13, ALT 18, alkaline phosphatase is 104, C-reactive protein is 15.1, total protein is 6.4, albumin 2.2. MICROBIOLOGY: Hip culture show positive Staphylococcus aureus. Blood culture, one set, shows Staphylococcus aureus. The other set show no growth up to 74 hours. Bone pathology is pending. ASSESSMENT AND PLAN: 1. Left septic hip with necrosis. Culture came back for MSSA. Antibiotic switched to nafcillin and rifampin. Patient is scheduled to have a PICC line insertion. I have discussed with the social services analyst to obtain equipment and support for home IV use. Today is post operative day #3. Infectious disease specialist, Dr. Romo, has been assisting on the case.[ 2. Tobacco abuse on nicotine patch. 3. History of right wrist fracture on splint. 4. Major depressive disorder. Patient had an admission to inpatient mental health unit (IM) from 04/16/2017 to 04/19/2017. Patient is currently on Prozac and Wellbutrin. 5. History of pulmonary nodules. Patient needs to continue outpatient followup. 6. Diabetes. On sliding scale and consistent carbohydrate diet. 7. History of aortic arch aneurysm. 8. Deep venous thrombosis (DVT) prophylaxis. Patient is on thromboembolic deterrent stockings (TEDS) and sequential compressive device.
[2017-04-29] MEDS ORDERED: WARFARIN SOD 7.5 MG TAB PO ONE (17:00)
[2017-04-29] MEDS: SODIUM CHLORIDE 0.9% INJ 10 ML SYR IV SCH (17:14)
[2017-04-29] MEDS ORDERED: SODIUM CHLORIDE 0.9% INJ 10 ML SYR IV PRN (17:15)
--- NOTE | 2017-04-29 20:41 | IPN ---
DATE: 04/29/2017 Mr. Timmons seems to be doing very well today. He is in his jeans. He is ready to be discharged. He feels he could do his own intravenous (IV) antibiotics at home. He has received at least 12 weeks of IV antibiotics while he was at [facility] in [facility]. The doctor was Luigi. He states he feels pretty comfortable with doing it. He has had no fever or chills. No nausea, vomiting or diarrhea. He has been switched to IV nafcillin 2 grams every 4 hours and oral rifampin. LABORATORY DATA: White count is 4, hemoglobin 8.2, hematocrit 24.5, platelets 263. ESR 66. Sodium 137, potassium 3.8, chloride 102, bicarbonate 27, BUN 9, creatinine 0.78, glucose 173, calcium 9, bilirubin 0.5, AST 13, ALT 18, CRP is 15.1 down from 18 yesterday. Blood culture one out of two is positive for methicillin-sensitive Staphylococcus aureus (MSSA). Wound culture left hip was positive for MSSA. Anaerobic culture was negative. Repeat blood culture done on 04/28/2017 no growth after 24 hours. Peripherally inserted central catheter (PICC) line was placed in the left arm this afternoon. On physical exam, temperature is 98.3, pulse 95, respirations 18, blood pressure 118/69, oxygen saturation 95% on room air. Maximum temperature (T max) on 04/27/2017 was 100.9. He has been afebrile since then. Heart: Normal S1, S2. No murmurs. Lungs: Decreased breath sounds but clear. Abdomen is soft, nontender. Left hip: Limited range of motion, limited flexion but he can bend his hip, wiggle his toes. IMPRESSION: 1. Septic arthritis of the left hip with necrosis, status post resection of femoral head with sepsis, positive blood cultures for MSSA and wound culture. The patient will be on IV nafcillin 2 grams every 4 hours, total of 12 grams continuous infusion along with oral rifampin for a total of 6 weeks. He may need chronic suppressive therapy. I will get his records from [facility] and discuss the case with his orthopedic surgeon and infectious disease in [place]. 2. History of depression, doing well on bupropion and fluoxetine. He had a recent admission to the hospital. 3. Deep vein thrombosis (DVT) prophylaxis. The patient is on warfarin 7.5 mg daily along with rifampin which will cause drug interactions and his Coumadin dose will need to be much higher than 7.5, more like 15 mg as rifampin is a cytochrome P450 inducer and causes very low international normalized ratios (INRs). PLAN: Consult [facility] for home IV antibiotic. Will do the teaching tomorrow. Hopefully he can be discharged home in the next 24-48 hours.
[2017-04-29 22:00] VITALS: BP 140/22
[2017-04-30] MEDS: NAFCILLIN SOD 2 GM in D5W MINI-BAG PLUS 100 ML IV SCH ×3 (01:03→08:21)
[2017-04-30] MEDS: PERCOCET 5MG/325MG TAB PO PRN ×3 (01:04→08:26)
[2017-04-30] MEDS: SODIUM CHLORIDE 0.9% INJ 10 ML SYR IV SCH (05:19)
[2017-04-30 05:43] LABS: MEAN CORPUSCULAR HEMOGLOBIN 27.6 pg (27.0-33.0); MEAN CORPUSCULAR HGB CONC 33.1 g/dl (32.0-36.5); MEAN CORPUSCULAR VOLUME 83.4 fl (80.0-96.0); RED CELL DISTRIBUTION WIDTH 17.3 % (11.5-14.5); WHITE BLOOD COUNT 4.2 K/mm3 (4.0-10.0)
[2017-04-30 05:47] LABS: INR 1.21
[2017-04-30 06:00] VITALS: BP 144/68
[2017-04-30 06:14] LABS: ALBUMIN 2.4 GM/DL (3.2-5.2); ALBUMIN/GLOBULIN RATIO 0.69 (1.00-1.93); ALKALINE PHOSPHATASE 113 U/L (45-117); ALT/SGPT 18 U/L (12-78); ANION GAP 5 MEQ/L (8-16); AST/SGOT 12 U/L (15-37); BILIRUBIN,TOTAL 0.4 MG/DL (0.2-1.0); BLOOD UREA NITROGEN 10 MG/DL (7-18); CALCIUM LEVEL 8.5 MG/DL (8.8-10.2); CARBON DIOXIDE LEVEL 30 MEQ/L (21-32); CHLORIDE LEVEL 102 MEQ/L (98-107); CREATININE FOR GFR 0.76 MG/DL (0.70-1.30); GLOMERULAR FILTRATION RATE > 60.0 (>49); GLUCOSE, FASTING 177 MG/DL (80-110); POTASSIUM SERUM 3.6 MEQ/L (3.5-5.1); SODIUM LEVEL 137 MEQ/L (136-145); TOTAL PROTEIN 5.9 GM/DL (6.4-8.2)
[2017-04-30] MEDS ORDERED: ASPI325T PO (07:51)
[2017-04-30] MEDS ORDERED: PERC5TAB6 PO (07:51)
[2017-04-30] MEDS ORDERED: NALL2INJ2 IV (07:57)
[2017-04-30] MEDS ORDERED: NICO14PA TD (07:57)
[2017-04-30] MEDS: HumaLOG INSULIN (NovoLOG) PER UNIT SC SCH (08:22)
[2017-04-30] MEDS: buPROPion **XL** TABLET 150MG (WELLBUTRIN XL) PO SCH (08:23)
[2017-04-30] MEDS: SENOKOT S TAB PO SCH (08:23)
[2017-04-30] MEDS: MIRALAX *UNIT DOSE* 17GM PACKET PO SCH (08:23)
[2017-04-30] MEDS: MOM 30ML SUSPENSION UDC PO SCH (08:23)
[2017-04-30] MEDS: FLUoxetine 20 MG CAP PO SCH (08:25)
[2017-04-30] MEDS: NICOTINE 14 MG/24 HR TRANSDERMAL TD SCH (08:25)
[2017-04-30] MEDS ORDERED: ASPIRIN 325 MG TAB PO SCH (09:00)
--- NOTE | 2017-05-01 06:47 | DSES ---
DATE OF ADMISSION: 04/26/2017 DATE OF DISCHARGE: 04/30/2017 CONSULTANTS DURING ADMISSION: 1. Infectious disease, Dr. Christopher Romo. 2. Orthopedic surgeon, Dr. Lazaro May. PRIMARY CARE PHYSICIAN: From [place]. PRIMARY DISCHARGE DIAGNOSES: 1. Septic arthritis of the left hip with necrosis, and with osteomyelitis of femoral head, status post resection of the femoral head with sepsis. Positive cultures for methicillin-sensitive Staphylococcus aureus (MSSA) in the wound culture. 2. Depression. 3. Tobacco abuse. 4. History of right wrist fracture on splint. 5. History of pulmonary nodules. 6. Diabetes. 7. History of aortic arch aneurysm. DISCHARGE MEDICATIONS: - aspirin 325 daily - rifampin 300 mg twice a day - nafcillin 2 grams intravenous (IV) every four hours - MiraLAX one packet daily - milk of magnesia 30 mL daily - Senokot one tablet twice a day - Percocet 1-2 tablets every four hours as needed for severe pain - Prozac 40 daily - Wellbutrin 150 daily - nicotine patch one daily 14 mg HOSPITAL COURSE: This is a 61-year-old male with left zuni hip septic arthritis diagnosed in [place] in January 2017, with a history of methicillin-sensitive Staphylococcus aureus (MSSA). Underwent irrigation and debridement, treated with 12 weeks of intravenous (IV) antibiotics every eight hours. Moved to [place] to be closer to family. Was admitted to inpatient mental health unit from 04/16 to 04/19, treated for depression. He presented to the emergency room with acute onset of hip pain, fever, chills, and was found to have destructive changes at the left hip with flattening of the femoral head, left-sided joint effusion and with a fluid collection 3.9 x 2.8 cm, suspicious for an abscess. Taken to the operating room by Dr. May, showed gross purulence of the hip joint consistent with osteomyelitis and septic arthritis of the left hip. The patient was irrigated and debrided with removal of the femoral head with antibiotic beads placed, and the femoral head appeared to be necrotic. Microbiology grew out MSSA. The patient was started on IV nafcillin 2 grams every four hours, along with oral rifampin for a total of six weeks. The patient was discharged with home care. Deep venous thrombosis (DVT) prophylaxis was managed by orthopedic surgery. LABORATORIES AT DISCHARGE: INR 1.21. White count 4.3, hemoglobin 8.2, hematocrit 24.8, platelet count 308. Sodium 137, potassium 3.6, chloride 102, bicarbonate 30, BUN 10, creatinine 0.76, glucose of 177. CULTURES: Blood cultures 04/25, Staphylococcus aureus one of two sets. Left hip wound culture Staphylococcus aureus, MSSA. OUTPATIENT ISSUES: 1. Left septic hip with necrosis with MSSA. The patient is status post peripherally inserted central catheter (PICC) line postoperative day four. Followup with Dr. Romo as outpatient. Check complete blood count (CBC), sedimentation rate, and C-reactive protein (CRP) every Saturday. 2. DVT prophylaxis to be managed by orthopedic surgery due to left hip resection and arthroplasty. Currently on aspirin 325 daily.
--- NOTE | 2017-05-01 20:09 | REP ---
Procedure: PICC line insertion with Abdiel The procedure was performed under the direct supervision of Dr. Trinidad. The risks and benefits of the procedure were explained to the patient and informed consent was obtained. The left brachial vein was localized using ultrasound guidance. The skin was prepped and draped in a sterile fashion. 2% lidocaine was used as a local anesthetic. Using ultrasound guidance the brachial vein was cannulated and a 0.018 guidewire was inserted and advanced to the SVC using fluoroscopic guidance. The needle was removed and a 4.5 Setswana dilator and peel-away sheath was inserted over the guide wire. A 4.5 Setswana single lumen catheter was cut to length of 46 cm. The dilator was removed and the catheter was inserted over the guide wire with the tip ending in the SVC. The peel-away sheath was removed and the catheter was flushed with heparinized saline as per Hospital protocol. The catheter was affixed to the skin and a sterile dressing was applied. The the patient tolerated the procedure well and there were no immediate complications. 0.3 minutes of fluoro time was utilized for this procedure. Reviewed by ANDREW Mejia 04/30/2017 04:30 PSigned by Keenan Trinidad MD 05/01/2017 07:51 P
== END 2017-04-30 12:30 | disposition home health service (06) | DRG 309 ==
LOC: EDBD 19:00 → M ED 20:26 → M ED INP 04-26 00:08 → M MSPAV 04-26 01:36 → M MS5PR 04-26 17:37
PROVIDERS: ADMIT Internal Medicine; ATTEND General Practice
PROC: 0QB50ZZ Excision of Left Acetabulum, Open Approach (ICD-10-PCS; 2017-04-26)
PROC: 3E0U029 Introduction of Other Anti-infective into Joints, Open Approach (ICD-10-PCS; 2017-04-26)
PROC: 0QB70ZZ Excision of Left Upper Femur, Open Approach (ICD-10-PCS; principal; 2017-04-26 13:00)
PROC: 02HV33Z Insertion of Infusion Device into Superior Vena Cava, Percutaneous Approach (ICD-10-PCS; 2017-04-29)
DX: M00.852 Arthritis due to other bacteria, left hip (principal); M86.152 Other acute osteomyelitis, left femur; M87.352 Other secondary osteonecrosis, left femur; F32.9 Major depressive disorder, single episode, unspecified; E11.9 Type 2 diabetes mellitus without complications; B95.61 Methicillin susceptible Staphylococcus aureus infection as the cause of diseases classified elsewhere; R91.8 Other nonspecific abnormal finding of lung field; Z79.84 Long term (current) use of oral hypoglycemic drugs; F17.210 Nicotine dependence, cigarettes, uncomplicated; S62.101D Fracture of unspecified carpal bone, right wrist, subsequent encounter for fracture with routine healing; Z79.899 Other long term (current) drug therapy

== ENCOUNTER → 2017-05-13 | Outpatient (REF) | payer OTHER ==
[~2017-05-13] MED LIST changes: +ASPI325T PO; +FLORCAP6 PO; +IBUPOTC PO; +NALL2INJ2 IV; +NICO14PA TD; +OXYC1TAB23 PO; +PERC5TAB6 PO
[2017-05-13 14:08] LABS: BASO % 0.6 % (0.0-1.0); EOS # 0.1 K/mm3 (0.0-0.50); EOS % 2.1 % (0.0-3.0); LARGE UNSTAINED CELL # 0.1 K/mm3 (0.0-0.4); LYMPH # 1.3 K/mm3 (1.5-4.5); LYMPH % 18.6 % (24.0-44.0); MEAN CORPUSCULAR HEMOGLOBIN 28.5 pg (27.0-33.0); MEAN CORPUSCULAR HGB CONC 32.4 g/dl (32.0-36.5); MEAN CORPUSCULAR VOLUME 87.9 fl (80.0-96.0); MONO # 0.2 K/mm3 (0.0-0.8); MONO % 3.5 % (0.0-5.0); NEUTROPHILS % 74.3 % (36.0-66.0); PLATELET COUNT, AUTOMATED 287 k/mm3 (150-450); RED CELL DISTRIBUTION WIDTH 20.4 % (11.5-14.5); WHITE BLOOD COUNT 6.8 K/mm3 (4.0-10.0)
[2017-05-13 14:59] LABS: ERYTHROCYTE SEDIMENTATION RATE 69 mm/hr (0-20)
[2017-05-13 15:12] LABS: ALBUMIN/GLOBULIN RATIO 0.86 (1.00-1.93); ALKALINE PHOSPHATASE 93 U/L (45-117); ALT/SGPT 9 U/L (12-78); ANION GAP 7 MEQ/L (8-16); AST/SGOT 9 U/L (15-37); BILIRUBIN,TOTAL 0.6 MG/DL (0.2-1.0); BLOOD UREA NITROGEN 13 MG/DL (7-18); CALCIUM LEVEL 8.5 MG/DL (8.8-10.2); CARBON DIOXIDE LEVEL 27 MEQ/L (21-32); CHLORIDE LEVEL 109 MEQ/L (98-107); CREATININE FOR GFR 0.84 MG/DL (0.70-1.30); GLOMERULAR FILTRATION RATE > 60.0 (>49); GLUCOSE, FASTING 85 MG/DL (80-110); POTASSIUM SERUM 3.2 MEQ/L (3.5-5.1); SODIUM LEVEL 143 MEQ/L (136-145); TOTAL PROTEIN 6.5 GM/DL (6.4-8.2)
== END ==
LOC: M SHH 13:35
PROVIDERS: ATTEND Internal Medicine Infectious Disease
DX: M00.052 Staphylococcal arthritis, left hip (principal)

== ENCOUNTER → 2017-05-20 | Outpatient (REF) | payer OTHER ==
[~2017-05-20] MED LIST changes: +FLUO20CA19 PO; -FLUO20CA9 PO; -METF500T PO; +METF500T13 PO; +PERC5TAB12 PO; -PERC5TAB6 PO; +TRAZ50TA11 PO; -TRAZ50TA4 PO
[2017-05-20 12:47] LABS: BASO # 0.1 K/mm3 (0.0-0.2); BASO % 1.3 % (0.0-1.0); EOS # 0.2 K/mm3 (0.0-0.50); EOS % 3.8 % (0.0-3.0); LARGE UNSTAINED CELL # 0.1 K/mm3 (0.0-0.4); LYMPH # 1.9 K/mm3 (1.5-4.5); MEAN CORPUSCULAR HEMOGLOBIN 29.2 pg (27.0-33.0); MEAN CORPUSCULAR HGB CONC 32.6 g/dl (32.0-36.5); MEAN CORPUSCULAR VOLUME 89.6 fl (80.0-96.0); MONO # 0.2 K/mm3 (0.0-0.8); MONO % 4.3 % (0.0-5.0); NEUTROPHILS % 54.6 % (36.0-66.0); PLATELET COUNT, AUTOMATED 230 k/mm3 (150-450); RED CELL DISTRIBUTION WIDTH 20.8 % (11.5-14.5); WHITE BLOOD COUNT 5.4 K/mm3 (4.0-10.0)
[2017-05-20 13:20] LABS: ERYTHROCYTE SEDIMENTATION RATE 49 mm/hr (0-20)
[2017-05-20 13:51] LABS: ALBUMIN 3.2 GM/DL (3.2-5.2); ALBUMIN/GLOBULIN RATIO 0.91 (1.00-1.93); ALKALINE PHOSPHATASE 102 U/L (45-117); ALT/SGPT 7 U/L (12-78); ANION GAP 8 MEQ/L (8-16); AST/SGOT 8 U/L (15-37); BILIRUBIN,TOTAL 0.7 MG/DL (0.2-1.0); BLOOD UREA NITROGEN 13 MG/DL (7-18); CALCIUM LEVEL 8.8 MG/DL (8.8-10.2); CARBON DIOXIDE LEVEL 25 MEQ/L (21-32); CHLORIDE LEVEL 108 MEQ/L (98-107); GLOMERULAR FILTRATION RATE > 60.0 (>49); GLUCOSE, FASTING 138 MG/DL (80-110); POTASSIUM SERUM 3.5 MEQ/L (3.5-5.1); SODIUM LEVEL 141 MEQ/L (136-145); TOTAL PROTEIN 6.7 GM/DL (6.4-8.2)
== END ==
LOC: M SHH 11:52 → M LAB REF 11:52
PROVIDERS: ATTEND Internal Medicine Infectious Disease
DX: M00.052 Staphylococcal arthritis, left hip (principal)

== ENCOUNTER → 2017-05-27 | Outpatient (REF) | payer OTHER ==
[2017-05-27 17:19] LABS: BASO # 0.1 K/mm3 (0.0-0.2); BASO % 1.1 % (0.0-1.0); EOS # 0.2 K/mm3 (0.0-0.50); EOS % 2.7 % (0.0-3.0); LARGE UNSTAINED CELL # 0.1 K/mm3 (0.0-0.4); LARGE UNSTAINED CELL % 1.3 % (0.0-4.0); LYMPH # 1.9 K/mm3 (1.5-4.5); MEAN CORPUSCULAR HEMOGLOBIN 29.8 pg (27.0-33.0); MEAN CORPUSCULAR HGB CONC 33.2 g/dl (32.0-36.5); MEAN CORPUSCULAR VOLUME 89.9 fl (80.0-96.0); MONO # 0.3 K/mm3 (0.0-0.8); MONO % 4.5 % (0.0-5.0); NEUTROPHILS # 4.7 K/mm3 (1.8-7.7); NEUTROPHILS % 64.3 % (36.0-66.0); PLATELET COUNT, AUTOMATED 204 k/mm3 (150-450); RED CELL DISTRIBUTION WIDTH 20.5 % (11.5-14.5); WHITE BLOOD COUNT 7.3 K/mm3 (4.0-10.0)
[2017-05-27 18:27] LABS: ERYTHROCYTE SEDIMENTATION RATE 40 mm/hr (0-20)
[2017-05-27 18:31] LABS: ALBUMIN 3.4 GM/DL (3.2-5.2); ALBUMIN/GLOBULIN RATIO 0.94 (1.00-1.93); ALKALINE PHOSPHATASE 108 U/L (45-117); ALT/SGPT 11 U/L (12-78); ANION GAP 6 MEQ/L (8-16); AST/SGOT 11 U/L (15-37); BILIRUBIN,TOTAL 0.6 MG/DL (0.2-1.0); BLOOD UREA NITROGEN 11 MG/DL (7-18); CALCIUM LEVEL 8.8 MG/DL (8.8-10.2); CARBON DIOXIDE LEVEL 29 MEQ/L (21-32); CHLORIDE LEVEL 106 MEQ/L (98-107); CREATININE FOR GFR 0.84 MG/DL (0.70-1.30); GLOMERULAR FILTRATION RATE > 60.0 (>49); GLUCOSE, FASTING 130 MG/DL (80-110); POTASSIUM SERUM 3.8 MEQ/L (3.5-5.1); SODIUM LEVEL 141 MEQ/L (136-145)
== END ==
LOC: M SHH 15:11
PROVIDERS: ATTEND Internal Medicine Infectious Disease
DX: M00.052 Staphylococcal arthritis, left hip (principal)

== ENCOUNTER → 2017-06-03 | Outpatient (REF) | payer OTHER ==
[2017-06-03 15:57] LABS: ALBUMIN 3.4 GM/DL (3.2-5.2); ALBUMIN/GLOBULIN RATIO 0.97 (1.00-1.93); ALKALINE PHOSPHATASE 112 U/L (45-117); ALT/SGPT 10 U/L (12-78); ANION GAP 8 MEQ/L (8-16); AST/SGOT 7 U/L (15-37); BILIRUBIN,TOTAL 0.9 MG/DL (0.2-1.0); BLOOD UREA NITROGEN 15 MG/DL (7-18); CALCIUM LEVEL 9.2 MG/DL (8.8-10.2); CARBON DIOXIDE LEVEL 28 MEQ/L (21-32); CHLORIDE LEVEL 107 MEQ/L (98-107); CREATININE FOR GFR 1.14 MG/DL (0.70-1.30); GLOMERULAR FILTRATION RATE > 60.0 (>49); GLUCOSE, FASTING 88 MG/DL (80-110); POTASSIUM SERUM 3.7 MEQ/L (3.5-5.1); SODIUM LEVEL 143 MEQ/L (136-145); TOTAL PROTEIN 6.9 GM/DL (6.4-8.2)
[2017-06-03 15:58] LABS: BASO # 0.1 K/mm3 (0.0-0.2); EOS # 0.1 K/mm3 (0.0-0.50); EOS % 2.5 % (0.0-3.0); LARGE UNSTAINED CELL # 0.1 K/mm3 (0.0-0.4); LARGE UNSTAINED CELL % 1.5 % (0.0-4.0); LYMPH # 1.8 K/mm3 (1.5-4.5); LYMPH % 30.5 % (24.0-44.0); MEAN CORPUSCULAR HEMOGLOBIN 30.6 pg (27.0-33.0); MEAN CORPUSCULAR HGB CONC 33.9 g/dl (32.0-36.5); MEAN CORPUSCULAR VOLUME 90.1 fl (80.0-96.0); MONO # 0.3 K/mm3 (0.0-0.8); NEUTROPHILS # 3.3 K/mm3 (1.8-7.7); NEUTROPHILS % 59.5 % (36.0-66.0); PLATELET COUNT, AUTOMATED 225 k/mm3 (150-450); RED CELL DISTRIBUTION WIDTH 20.3 % (11.5-14.5); WHITE BLOOD COUNT 5.6 K/mm3 (4.0-10.0)
[2017-06-03 17:09] LABS: ERYTHROCYTE SEDIMENTATION RATE 37 mm/hr (0-20)
== END ==
LOC: M SHH 15:33
PROVIDERS: ATTEND Internal Medicine Infectious Disease
DX: M00.052 Staphylococcal arthritis, left hip (principal)